=== PATIENT | male | born 1955 | race Caucasian/White ===

== ENCOUNTER 2020-02-14 16:34 | Inpatient (IN) | payer MEDICARE ==
[~2020-02-14] VITALS: Ht 167.6 cm; Wt 83.6 kg
[2020-02-14 17:40] VITALS: BP 140/84
[2020-02-14] MEDS ORDERED: POLYETHYLENE GLYCOL 3350 17 GM PACK PO PRN (18:00)
[2020-02-14] MEDS ORDERED: ACETAMINOPHEN 325 MG TAB PO PRN (18:00)
[2020-02-14] MEDS ORDERED: HYDRALAZINE HCL 20 MG/ML VIAL IV PRN (18:00)
[2020-02-14] MEDS ORDERED: DIATRIZOATE MEGL/DIATRIZOA SOD 30 ML BTL PO ONE (18:40)
[2020-02-14] MEDS: PIPER-TAZ 3.375 GM 50 ML IV SCH (19:50)
[2020-02-14] MEDS: SODIUM CHLORIDE 0.45% 1,000 ML IV SCH (19:50)
[2020-02-14 19:58] LABS: BASOPHILS # (AUTO) 0.1 (0.0-0.1); BASOPHILS % 1.3 % (0.0-1.0); EOSINOPHILS # (AUTO) 0.5 (0.0-0.4); EOSINOPHILS % 5.2 % (0.0-6.0); HEMATOCRIT 37.6 % (38.2-49.6); HEMOGLOBIN 11.9 g/dL (14.0-18.0); LYMPHOCYTES % 30.1 % (18.0-39.1); MEAN CORPUSCULAR HEMOGLOBIN 28.8 pg (28-32); MEAN CORPUSCULAR HGB CONC 31.6 g/dL (31-35); MONOCYTES # (AUTO) 0.9 (0.2-0.8); MONOCYTES % 8.9 % (4.4-11.3); NEUTROPHILS # (AUTO) 5.3 (2.1-6.9); PLATELET COUNT 657 x10e3/uL (140-360); RED BLOOD COUNT 4.13 x10e6/uL (4.3-5.7); RED CELL DISTRIBUTION WIDTH 15.9 % (11.7-14.4)
[2020-02-14 20:00] VITALS: BP_SYST 116; BP_SYST 140; BP_DIAS 81; BP_DIAS 84
[2020-02-14] MEDS: HYDROMORPHONE 1MG/1ML INJ IV PRN (20:04)
[2020-02-14 20:11] LABS: INR 1.04; PROTHROMBIN TIME 14.1 seconds (11.9-14.5)
[2020-02-14 20:12] LABS: PARTIAL THROMBOPLASTIN TIME 29.7 seconds (23.8-35.5)
[2020-02-14 20:21] LABS: ALANINE AMINOTRANSFERASE 8 IU/L (0-55); ALBUMIN 2.9 g/dL (3.5-5.0); ALBUMIN/GLOBULIN RATIO 0.6 (0.8-2.0); ALKALINE PHOSPHATASE 96 IU/L (40-150); BLOOD UREA NITROGEN 12 mg/dL (7-26); BUN/CREATININE RATIO 12 (6-25); CALCIUM 8.5 mg/dL (8.4-10.2); CARBON DIOXIDE 21 mmol/L (22-29); CHLORIDE 108 mmol/L (98-107); CHOLESTEROL 134 MD/DL (0-199); CREATININE, SERUM 1.03 mg/dL (0.72-1.25); EST GLOMERULAR FILTRATION RATE > 60 ML/MIN (60-); GLUCOSE 105 mg/dL (74-118); MAGNESIUM 1.5 MG/DL (1.3-2.1); SODIUM 139 mmol/L (136-145); TRIGLYCERIDES 101 MG/DL (0-149)
[2020-02-14 20:28] LABS: HDL CHOLESTEROL < 5 MG/DL (40-60); LDL CHOLESTEROL 109 MG/DL (60-130); PHOSPHORUS < 0.7 MG/DL (2.3-4.7)
[2020-02-14 20:42] LABS: THYROID STIMULATING HORMONE 1.741 uIU/mL (0.350-4.940)
[2020-02-14] MEDS: VANCOMYCIN 1GM/NS 250 ML 250 ML IV SCH (20:55)
[2020-02-14] MEDS: NICOTINE 14 MG/EA PATCH TOP SCH (21:16)
[2020-02-14] MEDS: TEMAZEPAM 15 MG CAP PO PRN (21:47)
[2020-02-14] MEDS ORDERED: SODIUM CHLORIDE 0.9% 50ML 50 ML ONE (21:48)
[2020-02-14] MEDS ORDERED: IOPAMIDOL 370 MG/ML 200 ML INFUS..BTL INJ ONE (21:48)
[2020-02-15] VITALS (7 sets, daily range): BP systolic 108–138; BP diastolic 71–86
[2020-02-15] MEDS: HYDROMORPHONE 1MG/1ML INJ IV PRN ×4 (00:09→22:34)
[2020-02-15] MEDS: PIPER-TAZ 3.375 GM 50 ML IV SCH ×5 (00:11→23:59)
[2020-02-15 00:42] LABS: CLARITY,URINE CLEAR (CLEAR); COLOR,URINE YELLOW (YELLOW); KETONES,URINE NEGATIVE (NEGATIVE); LEUKOCYTE ESTERASE ,URINE NEGATIVE (NEGATIVE); NITRITE,URINE NEGATIVE (NEGATIVE); PROTEIN,URINE DIPSTICK NEGATIVE (NEGATIVE); URINE UROBILINOGEN 0.2 mg/dL (0.2 - 1)
[2020-02-15 00:52] LABS: BACTERIA,URINE RARE /HPF; EPITHELIAL CELLS,URINE RARE /LPF; RBC,URINE 0-5 /HPF (0-5); WBC,URINE (MAN) 0-5 /HPF (0-5)
[2020-02-15 06:45] LABS: BASOPHILS # (AUTO) 0.1 (0.0-0.1); BASOPHILS % 1.3 % (0.0-1.0); EOSINOPHILS # (AUTO) 0.7 (0.0-0.4); EOSINOPHILS % 10.3 % (0.0-6.0); HEMATOCRIT 38.2 % (38.2-49.6); LYMPHOCYTES # (AUTO) 2.1 (1.0-3.2); LYMPHOCYTES % 29.1 % (18.0-39.1); MEAN CORPUSCULAR HEMOGLOBIN 28.8 pg (28-32); MEAN CORPUSCULAR HGB CONC 31.4 g/dL (31-35); MEAN CORPUSCULAR VOLUME 91.6 fL (81-99); MONOCYTES # (AUTO) 0.8 (0.2-0.8); MONOCYTES % 10.7 % (4.4-11.3); NEUTROPHILS # (AUTO) 3.5 (2.1-6.9); NEUTROPHILS % 48.5 % (38.7-80.0); PLATELET COUNT 620 x10e3/uL (140-360); RED BLOOD COUNT 4.17 x10e6/uL (4.3-5.7); RED CELL DISTRIBUTION WIDTH 16.1 % (11.7-14.4)
[2020-02-15 07:07] LABS: ALANINE AMINOTRANSFERASE 8 IU/L (0-55); ALBUMIN 2.7 g/dL (3.5-5.0); ALBUMIN/GLOBULIN RATIO 0.6 (0.8-2.0); ALKALINE PHOSPHATASE 92 IU/L (40-150); ANION GAP 11.7 mmol/L (8-16); BLOOD UREA NITROGEN 11 mg/dL (7-26); BUN/CREATININE RATIO 10 (6-25); CALCIUM 8.3 mg/dL (8.4-10.2); CARBON DIOXIDE 25 mmol/L (22-29); CHLORIDE 104 mmol/L (98-107); CREATININE, SERUM 1.08 mg/dL (0.72-1.25); EST GLOMERULAR FILTRATION RATE > 60 ML/MIN (60-); GLUCOSE 79 mg/dL (74-118); POTASSIUM 3.7 mmol/L (3.5-5.1); SODIUM 137 mmol/L (136-145)
[2020-02-15] MEDS: VANCOMYCIN 1GM/NS 250 ML 250 ML IV SCH ×2 (08:00→20:12)
[2020-02-15] MEDS: DOCUSATE SODIUM 100 MG CAP PO SCH ×2 (09:45→17:29)
[2020-02-15] MEDS: FAMOTIDINE 20 MG/2 ML VIAL IV SCH ×2 (09:45→17:29)
[2020-02-15] MEDS ORDERED: DIAZEPAM 5 MG TAB PO ONE (12:30)
[2020-02-15] MEDS ORDERED: DIAZEPAM 2 MG TAB PO ONE (12:30)
[2020-02-15] MEDS ORDERED: DEXTROSE 10% 1,000 ML IV PRN (15:30)
[2020-02-15] MEDS ORDERED: GABAPENTIN300 MG PO (15:33)
[2020-02-15] MEDS ORDERED: PROAIR HFA INH8.5 GM HE (15:33)
[2020-02-15] MEDS ORDERED: NYSTATIN-TRIAMC15 GM TOP (15:33)
[2020-02-15] MEDS ORDERED: CLOPIDOGREL75 MG PO (15:33)
[2020-02-15] MEDS ORDERED: LISINOPRIL-HCT1 EACH PO (15:33)
[2020-02-15] MEDS ORDERED: NORCO 5-325 TA1 EACH PO (15:33)
[2020-02-15] MEDS ORDERED: FERROUS FUMARA324 MG PO (15:33)
[2020-02-15] MEDS ORDERED: DIAZEPAM5 MG PO (15:33)
[2020-02-15] MEDS ORDERED: MUCINEX D ER T1 EAC1 PO (15:33)
[2020-02-15] MEDS ORDERED: VENTOLIN HFA18 GM (15:33)
[2020-02-15] MEDS ORDERED: ANORO ELLIPTA1 EACH IH (15:33)
[2020-02-15] MEDS ORDERED: MULTI-VITAMIN1 EACH PO (15:33)
[2020-02-15] MEDS ORDERED: NIFEDIPINE ER30 M1 PO (15:33)
[2020-02-15] MEDS: SODIUM CHLORIDE 0.45% 1,000 ML IV SCH ×2 (15:37→23:59)
[2020-02-15] MEDS ORDERED: CENTRAL TPN FORMULA 1 BAG IV SCH (20:00)
[2020-02-15] MEDS: TEMAZEPAM 15 MG CAP PO PRN (22:42)
[2020-02-16] VITALS (8 sets, daily range): BP systolic 121–150; BP diastolic 78–94
[2020-02-16] MEDS: HYDROMORPHONE 1MG/1ML INJ IV PRN ×6 (02:30→23:16)
[2020-02-16] MEDS: PIPER-TAZ 3.375 GM 50 ML IV SCH ×4 (05:20→23:34)
[2020-02-16 06:03] LABS: BASOPHILS # (AUTO) 0.1 (0.0-0.1); EOSINOPHILS % 12.8 % (0.0-6.0); HEMOGLOBIN 11.4 g/dL (14.0-18.0); LYMPHOCYTES # (AUTO) 1.9 (1.0-3.2); LYMPHOCYTES % 23.7 % (18.0-39.1); MEAN CORPUSCULAR HEMOGLOBIN 29.1 pg (28-32); MEAN CORPUSCULAR HGB CONC 31.7 g/dL (31-35); MEAN CORPUSCULAR VOLUME 91.8 fL (81-99); MONOCYTES # (AUTO) 0.7 (0.2-0.8); MONOCYTES % 9.4 % (4.4-11.3); NEUTROPHILS # (AUTO) 4.1 (2.1-6.9); NEUTROPHILS % 52.8 % (38.7-80.0); PLATELET COUNT 574 x10e3/uL (140-360); RED BLOOD COUNT 3.92 x10e6/uL (4.3-5.7)
[2020-02-16 06:40] LABS: ANION GAP 11.1 mmol/L (8-16); BLOOD UREA NITROGEN 9 mg/dL (7-26); BUN/CREATININE RATIO 10 (6-25); CALCIUM 8.2 mg/dL (8.4-10.2); CARBON DIOXIDE 24 mmol/L (22-29); CHLORIDE 105 mmol/L (98-107); CREATININE, SERUM 0.94 mg/dL (0.72-1.25); EST GLOMERULAR FILTRATION RATE > 60 ML/MIN (60-); GLUCOSE 90 mg/dL (74-118); MAGNESIUM 1.8 MG/DL (1.3-2.1); PHOSPHORUS 4.4 MG/DL (2.3-4.7); POTASSIUM 4.1 mmol/L (3.5-5.1); SODIUM 136 mmol/L (136-145)
[2020-02-16] MEDS: NICOTINE 14 MG/EA PATCH TOP SCH (08:37)
[2020-02-16] MEDS: FAMOTIDINE 20 MG/2 ML VIAL IV SCH ×2 (08:37→17:00)
[2020-02-16] MEDS: VANCOMYCIN 1GM/NS 250 ML 250 ML IV SCH ×2 (08:37→20:03)
[2020-02-16] MEDS: DOCUSATE SODIUM 100 MG CAP PO SCH ×2 (08:37→17:00)
[2020-02-16] MEDS ORDERED: DIAZEPAM 5 MG TAB PO PRN (11:30)
[2020-02-16] MEDS ORDERED: ALBUTEROL SULFATE HFA 8GM INHALATION AEROSOL INH PRN (11:30)
[2020-02-16] MEDS ORDERED: HYDROCODONE/APAP 5MG-325MG TAB PO PRN (11:30)
[2020-02-16] MEDS: NYSTATIN/TRIAMCINOLONE 15 GM CR TOP SCH (17:02)
[2020-02-16] MEDS ORDERED: CENTRAL TPN FORMULA 1 BAG IV SCH (20:00)
[2020-02-16] MEDS: GABAPENTIN 300 MG CAP PO SCH (20:06)
[2020-02-16] MEDS: SODIUM CHLORIDE 0.45% 1,000 ML IV SCH (23:34)
[2020-02-17] VITALS (7 sets, daily range): BP systolic 100–132; BP diastolic 66–81
[2020-02-17] MEDS: HYDROMORPHONE 1MG/1ML INJ IV PRN ×5 (03:21→20:19)
[2020-02-17] MEDS: DIPHENHYDRAMINE HCL INJ 50 MG/ML VIAL IV PRN ×2 (03:28→22:34)
[2020-02-17 05:38] LABS: BASOPHILS # (AUTO) 0.1 (0.0-0.1); BASOPHILS % 1.2 % (0.0-1.0); EOSINOPHILS # (AUTO) 1.1 (0.0-0.4); EOSINOPHILS % 13.8 % (0.0-6.0); HEMATOCRIT 40.5 % (38.2-49.6); HEMOGLOBIN 12.9 g/dL (14.0-18.0); LYMPHOCYTES % 24.1 % (18.0-39.1); MEAN CORPUSCULAR HEMOGLOBIN 28.9 pg (28-32); MEAN CORPUSCULAR HGB CONC 31.9 g/dL (31-35); MEAN CORPUSCULAR VOLUME 90.8 fL (81-99); MONOCYTES # (AUTO) 0.7 (0.2-0.8); MONOCYTES % 8.9 % (4.4-11.3); NEUTROPHILS # (AUTO) 4.2 (2.1-6.9); NEUTROPHILS % 51.6 % (38.7-80.0); PLATELET COUNT 556 x10e3/uL (140-360); RED BLOOD COUNT 4.46 x10e6/uL (4.3-5.7); RED CELL DISTRIBUTION WIDTH 15.9 % (11.7-14.4)
[2020-02-17] MEDS: PIPER-TAZ 3.375 GM 50 ML IV SCH ×3 (05:44→17:50)
[2020-02-17 06:01] LABS: ANION GAP 12.2 mmol/L (8-16); BLOOD UREA NITROGEN 11 mg/dL (7-26); BUN/CREATININE RATIO 11 (6-25); CALCIUM 8.9 mg/dL (8.4-10.2); CARBON DIOXIDE 23 mmol/L (22-29); CHLORIDE 107 mmol/L (98-107); CREATININE, SERUM 0.97 mg/dL (0.72-1.25); EST GLOMERULAR FILTRATION RATE > 60 ML/MIN (60-); GLUCOSE 104 mg/dL (74-118); MAGNESIUM 1.9 MG/DL (1.3-2.1); PHOSPHORUS 4.2 MG/DL (2.3-4.7); POTASSIUM 4.2 mmol/L (3.5-5.1); SODIUM 138 mmol/L (136-145)
[2020-02-17] MEDS: DOCUSATE SODIUM 100 MG CAP PO SCH ×2 (10:04→17:00)
[2020-02-17] MEDS: LISINOPRIL 20 MG TAB PO SCH (10:04)
[2020-02-17] MEDS: GUAIFENESIN 600MG/DEXTROMETHORPHAN 30MG TABSR PO SCH (10:04)
[2020-02-17] MEDS: HYDROCHLOROTHIAZIDE 25 MG TAB PO SCH (10:04)
[2020-02-17] MEDS: FAMOTIDINE 20 MG/2 ML VIAL IV SCH ×2 (10:04→17:50)
[2020-02-17] MEDS: VANCOMYCIN 1GM/NS 250 ML 250 ML IV SCH ×2 (10:04→20:29)
[2020-02-17] MEDS: MULTIVITAMINS/MINERALS TAB PO SCH (10:08)
[2020-02-17] MEDS: NIFEDIPINE CR 30 MG TAB PO SCH (10:08)
[2020-02-17] MEDS: CLOPIDOGREL BISULFATE 75 MG TAB PO SCH (10:08)
[2020-02-17] MEDS: [UNRECOGNIZED DRUG - OTHER] INH SCH (10:09)
[2020-02-17] MEDS: NYSTATIN/TRIAMCINOLONE 15 GM CR TOP SCH ×2 (10:09→17:50)
[2020-02-17] MEDS: NICOTINE 14 MG/EA PATCH TOP SCH (10:09)
[2020-02-17] MEDS ORDERED: CENTRAL TPN FORMULA 1 BAG IV SCH (20:00)
[2020-02-17] MEDS: GABAPENTIN 300 MG CAP PO SCH (20:35)
[2020-02-17] MEDS: TEMAZEPAM 15 MG CAP PO PRN (22:00)
[2020-02-18] VITALS (7 sets, daily range): BP systolic 96–112; BP diastolic 65–73
[2020-02-18] MEDS: SODIUM CHLORIDE 0.45% 1,000 ML IV SCH (02:46)
[2020-02-18] MEDS: HYDROMORPHONE 1MG/1ML INJ IV PRN ×5 (02:52→19:51)
[2020-02-18] MEDS: PIPER-TAZ 3.375 GM 50 ML IV SCH ×5 (05:54→23:26)
[2020-02-18 06:48] LABS: BASOPHILS # (AUTO) 0.1 (0.0-0.1); BASOPHILS % 1.6 % (0.0-1.0); EOSINOPHILS # (AUTO) 1.4 (0.0-0.4); EOSINOPHILS % 18.5 % (0.0-6.0); HEMATOCRIT 40.4 % (38.2-49.6); HEMOGLOBIN 12.9 g/dL (14.0-18.0); LYMPHOCYTES # (AUTO) 1.6 (1.0-3.2); LYMPHOCYTES % 20.7 % (18.0-39.1); MEAN CORPUSCULAR HEMOGLOBIN 29.1 pg (28-32); MEAN CORPUSCULAR HGB CONC 31.9 g/dL (31-35); MONOCYTES # (AUTO) 0.6 (0.2-0.8); MONOCYTES % 8.3 % (4.4-11.3); NEUTROPHILS # (AUTO) 3.8 (2.1-6.9); NEUTROPHILS % 50.5 % (38.7-80.0); PLATELET COUNT 548 x10e3/uL (140-360); RED BLOOD COUNT 4.44 x10e6/uL (4.3-5.7); RED CELL DISTRIBUTION WIDTH 16.1 % (11.7-14.4)
[2020-02-18 07:08] LABS: ANION GAP 11.9 mmol/L (8-16); BLOOD UREA NITROGEN 15 mg/dL (7-26); BUN/CREATININE RATIO 14 (6-25); CALCIUM 8.5 mg/dL (8.4-10.2); CARBON DIOXIDE 20 mmol/L (22-29); CHLORIDE 107 mmol/L (98-107); CREATININE, SERUM 1.05 mg/dL (0.72-1.25); EST GLOMERULAR FILTRATION RATE > 60 ML/MIN (60-); GLUCOSE 118 mg/dL (74-118); MAGNESIUM 1.8 MG/DL (1.3-2.1); PHOSPHORUS 4.6 MG/DL (2.3-4.7); POTASSIUM 3.9 mmol/L (3.5-5.1); SODIUM 135 mmol/L (136-145)
[2020-02-18] MEDS: VANCOMYCIN 1GM/NS 250 ML 250 ML IV SCH (08:30)
[2020-02-18] MEDS: NIFEDIPINE CR 30 MG TAB PO SCH (09:00)
[2020-02-18] MEDS: DOCUSATE SODIUM 100 MG CAP PO SCH ×2 (09:00→17:00)
[2020-02-18] MEDS: [UNRECOGNIZED DRUG - OTHER] INH SCH (09:00)
[2020-02-18] MEDS: FAMOTIDINE 20 MG/2 ML VIAL IV SCH ×2 (09:22→17:36)
[2020-02-18] MEDS: NICOTINE 14 MG/EA PATCH TOP SCH (09:22)
[2020-02-18] MEDS: HYDROCHLOROTHIAZIDE 25 MG TAB PO SCH (09:22)
[2020-02-18] MEDS: MULTIVITAMINS/MINERALS TAB PO SCH (09:22)
[2020-02-18] MEDS: CLOPIDOGREL BISULFATE 75 MG TAB PO SCH (09:22)
[2020-02-18] MEDS: GUAIFENESIN 600MG/DEXTROMETHORPHAN 30MG TABSR PO SCH (09:22)
[2020-02-18] MEDS: LISINOPRIL 20 MG TAB PO SCH (09:22)
[2020-02-18] MEDS: NYSTATIN/TRIAMCINOLONE 15 GM CR TOP SCH ×2 (09:22→17:36)
[2020-02-18] MEDS: SODIUM CHLORIDE 0.9% 1000ML 1,000 ML IV SCH (11:38)
[2020-02-18] MEDS ORDERED: CENTRAL TPN FORMULA 1 BAG IV SCH (20:00)
[2020-02-18] MEDS: GABAPENTIN 300 MG CAP PO SCH (21:15)
[2020-02-18] MEDS: TEMAZEPAM 15 MG CAP PO PRN (21:17)
[2020-02-19] MEDS: HYDROMORPHONE 1MG/1ML INJ IV PRN ×5 (01:49→19:54)
[2020-02-19 02:32] VITALS: BP 109/62
[2020-02-19] MEDS: PIPER-TAZ 3.375 GM 50 ML IV SCH ×3 (05:54→18:00)
[2020-02-19] MEDS: SODIUM CHLORIDE 0.9% 1000ML 1,000 ML IV SCH (05:54)
[2020-02-19 06:52] LABS: BASOPHILS # (AUTO) 0.1 (0.0-0.1); EOSINOPHILS # (AUTO) 1.4 (0.0-0.4); EOSINOPHILS % 20.4 % (0.0-6.0); HEMATOCRIT 40.3 % (38.2-49.6); HEMOGLOBIN 12.6 g/dL (14.0-18.0); LYMPHOCYTES # (AUTO) 1.9 (1.0-3.2); MEAN CORPUSCULAR HEMOGLOBIN 29.7 pg (28-32); MEAN CORPUSCULAR HGB CONC 31.3 g/dL (31-35); MONOCYTES # (AUTO) 0.8 (0.2-0.8); MONOCYTES % 11.3 % (4.4-11.3); NEUTROPHILS # (AUTO) 2.6 (2.1-6.9); PLATELET COUNT 536 x10e3/uL (140-360); RED BLOOD COUNT 4.24 x10e6/uL (4.3-5.7); RED CELL DISTRIBUTION WIDTH 16.3 % (11.7-14.4)
[2020-02-19 07:09] LABS: ANION GAP 11.3 mmol/L (8-16); BLOOD UREA NITROGEN 19 mg/dL (7-26); BUN/CREATININE RATIO 18 (6-25); CALCIUM 8.4 mg/dL (8.4-10.2); CARBON DIOXIDE 19 mmol/L (22-29); CHLORIDE 109 mmol/L (98-107); CREATININE, SERUM 1.05 mg/dL (0.72-1.25); EST GLOMERULAR FILTRATION RATE > 60 ML/MIN (60-); GLUCOSE 106 mg/dL (74-118); MAGNESIUM 1.9 MG/DL (1.3-2.1); PHOSPHORUS 5.2 MG/DL (2.3-4.7); POTASSIUM 4.3 mmol/L (3.5-5.1); SODIUM 135 mmol/L (136-145)
[2020-02-19] MEDS ORDERED: VANCOMYCIN 1GM/NS 250 ML 250 ML IV SCH (08:00)
[2020-02-19 08:10] VITALS: BP 98/71
[2020-02-19 08:27] VITALS: BP 98/71
[2020-02-19] MEDS: VANCOMYCIN 1GM/NS 250 ML 250 ML IV SCH (08:58)
[2020-02-19] MEDS: [UNRECOGNIZED DRUG - OTHER] INH SCH (09:00)
[2020-02-19] MEDS: HYDROCHLOROTHIAZIDE 25 MG TAB PO SCH (09:00)
[2020-02-19] MEDS: LISINOPRIL 20 MG TAB PO SCH (09:00)
[2020-02-19] MEDS: DOCUSATE SODIUM 100 MG CAP PO SCH ×2 (09:00→17:00)
[2020-02-19] MEDS: FAMOTIDINE 20 MG/2 ML VIAL IV SCH ×2 (09:19→17:05)
[2020-02-19] MEDS: NICOTINE 14 MG/EA PATCH TOP SCH (09:19)
[2020-02-19] MEDS: CLOPIDOGREL BISULFATE 75 MG TAB PO SCH (09:19)
[2020-02-19] MEDS: NYSTATIN/TRIAMCINOLONE 15 GM CR TOP SCH ×2 (09:19→17:05)
[2020-02-19] MEDS: MULTIVITAMINS/MINERALS TAB PO SCH (09:19)
[2020-02-19] MEDS: GUAIFENESIN 600MG/DEXTROMETHORPHAN 30MG TABSR PO SCH (09:19)
[2020-02-19 12:29] VITALS: BP 105/64
[2020-02-19] MEDS: DIPHENHYDRAMINE HCL INJ 50 MG/ML VIAL IV PRN (12:58)
[2020-02-19 16:32] VITALS: BP 106/72
[2020-02-19 20:00] VITALS: BP 117/77
[2020-02-19] MEDS ORDERED: CENTRAL TPN FORMULA 1 BAG IV SCH (20:00)
[2020-02-19] MEDS: GABAPENTIN 300 MG CAP PO SCH (20:27)
[2020-02-20] VITALS (7 sets, daily range): BP systolic 108–120; BP diastolic 68–81
[2020-02-20] MEDS: PIPER-TAZ 3.375 GM 50 ML IV SCH ×4 (00:02→18:07)
[2020-02-20] MEDS: HYDROMORPHONE 1MG/1ML INJ IV PRN ×6 (00:02→22:54)
[2020-02-20] MEDS: DIPHENHYDRAMINE HCL INJ 50 MG/ML VIAL IV PRN (00:52)
[2020-02-20] MEDS: SODIUM CHLORIDE 0.9% 1000ML 1,000 ML IV SCH (05:00)
[2020-02-20 06:08] LABS: BASOPHILS # (AUTO) 0.1 (0.0-0.1); BASOPHILS % 1.6 % (0.0-1.0); EOSINOPHILS # (AUTO) 1.2 (0.0-0.4); EOSINOPHILS % 15.8 % (0.0-6.0); HEMATOCRIT 42.1 % (38.2-49.6); HEMOGLOBIN 13.4 g/dL (14.0-18.0); LYMPHOCYTES # (AUTO) 2.3 (1.0-3.2); MEAN CORPUSCULAR HEMOGLOBIN 29.6 pg (28-32); MEAN CORPUSCULAR HGB CONC 31.8 g/dL (31-35); MEAN CORPUSCULAR VOLUME 93.1 fL (81-99); MONOCYTES # (AUTO) 0.8 (0.2-0.8); MONOCYTES % 10.2 % (4.4-11.3); NEUTROPHILS % 41.3 % (38.7-80.0); PLATELET COUNT 543 x10e3/uL (140-360); RED BLOOD COUNT 4.52 x10e6/uL (4.3-5.7); RED CELL DISTRIBUTION WIDTH 15.7 % (11.7-14.4)
[2020-02-20 06:48] LABS: ANION GAP 12.6 mmol/L (8-16); BLOOD UREA NITROGEN 20 mg/dL (7-26); BUN/CREATININE RATIO 20 (6-25); CALCIUM 8.6 mg/dL (8.4-10.2); CARBON DIOXIDE 19 mmol/L (22-29); CHLORIDE 109 mmol/L (98-107); EST GLOMERULAR FILTRATION RATE > 60 ML/MIN (60-); GLUCOSE 92 mg/dL (74-118); MAGNESIUM 1.7 MG/DL (1.3-2.1); PHOSPHORUS 4.7 MG/DL (2.3-4.7); POTASSIUM 4.6 mmol/L (3.5-5.1); SODIUM 136 mmol/L (136-145)
[2020-02-20] MEDS: LISINOPRIL 20 MG TAB PO SCH (09:00)
[2020-02-20] MEDS: [UNRECOGNIZED DRUG - OTHER] INH SCH (09:00)
[2020-02-20] MEDS: GUAIFENESIN 600MG/DEXTROMETHORPHAN 30MG TABSR PO SCH (09:00)
[2020-02-20] MEDS: HYDROCHLOROTHIAZIDE 25 MG TAB PO SCH (09:00)
[2020-02-20] MEDS: DOCUSATE SODIUM 100 MG CAP PO SCH ×2 (09:00→16:56)
[2020-02-20] MEDS: MULTIVITAMINS/MINERALS TAB PO SCH (09:00)
[2020-02-20] MEDS: FAMOTIDINE 20 MG/2 ML VIAL IV SCH ×2 (09:29→16:56)
[2020-02-20] MEDS: VANCOMYCIN 1GM/NS 250 ML 250 ML IV SCH (09:29)
[2020-02-20] MEDS: NYSTATIN/TRIAMCINOLONE 15 GM CR TOP SCH ×2 (10:00→16:56)
[2020-02-20] MEDS: NICOTINE 14 MG/EA PATCH TOP SCH (12:34)
[2020-02-20] MEDS ORDERED: DEXTROSE 50% SYRINGE 50 ML IV PRN (19:15)
[2020-02-20] MEDS: GABAPENTIN 300 MG CAP PO SCH (20:07)
[2020-02-20] MEDS: CENTRAL TPN FORMULA 1 BAG IV SCH (20:15)
[2020-02-21] VITALS (8 sets, daily range): BP systolic 106–119; BP diastolic 66–79
[2020-02-21] MEDS: HYDROMORPHONE 1MG/1ML INJ IV PRN ×2 (03:17→08:03)
[2020-02-21] MEDS: SODIUM CHLORIDE 0.9% 1000ML 1,000 ML IV SCH ×2 (06:06→17:03)
[2020-02-21] MEDS: PIPER-TAZ 3.375 GM 50 ML IV SCH ×5 (06:06→21:55)
[2020-02-21 06:57] LABS: BASOPHILS # (AUTO) 0.2 (0.0-0.1); BASOPHILS % 2.2 % (0.0-1.0); EOSINOPHILS # (AUTO) 0.9 (0.0-0.4); EOSINOPHILS % 13.5 % (0.0-6.0); HEMATOCRIT 40.5 % (38.2-49.6); HEMOGLOBIN 12.6 g/dL (14.0-18.0); LYMPHOCYTES # (AUTO) 2.4 (1.0-3.2); LYMPHOCYTES % 35.3 % (18.0-39.1); MEAN CORPUSCULAR HEMOGLOBIN 29.2 pg (28-32); MEAN CORPUSCULAR HGB CONC 31.1 g/dL (31-35); MEAN CORPUSCULAR VOLUME 93.8 fL (81-99); MONOCYTES # (AUTO) 0.6 (0.2-0.8); MONOCYTES % 9.1 % (4.4-11.3); NEUTROPHILS # (AUTO) 2.7 (2.1-6.9); NEUTROPHILS % 39.8 % (38.7-80.0); PLATELET COUNT 557 x10e3/uL (140-360); RED BLOOD COUNT 4.32 x10e6/uL (4.3-5.7); RED CELL DISTRIBUTION WIDTH 15.8 % (11.7-14.4)
[2020-02-21 07:21] LABS: ANION GAP 10.3 mmol/L (8-16); BLOOD UREA NITROGEN 17 mg/dL (7-26); BUN/CREATININE RATIO 16 (6-25); CALCIUM 9.3 mg/dL (8.4-10.2); CARBON DIOXIDE 19 mmol/L (22-29); CHLORIDE 109 mmol/L (98-107); CREATININE, SERUM 1.05 mg/dL (0.72-1.25); EST GLOMERULAR FILTRATION RATE > 60 ML/MIN (60-); GLUCOSE 83 mg/dL (74-118); POTASSIUM 4.3 mmol/L (3.5-5.1); SODIUM 134 mmol/L (136-145)
[2020-02-21] MEDS: VANCOMYCIN 1GM/NS 250 ML 250 ML IV SCH (08:00)
[2020-02-21] MEDS: FAMOTIDINE 20 MG/2 ML VIAL IV SCH ×2 (08:04→16:51)
[2020-02-21 08:05] LABS: MAGNESIUM 1.7 MG/DL (1.3-2.1)
[2020-02-21] MEDS: HYDROCHLOROTHIAZIDE 25 MG TAB PO SCH (08:06)
[2020-02-21] MEDS: DOCUSATE SODIUM 100 MG CAP PO SCH ×2 (08:06→16:31)
[2020-02-21] MEDS: [UNRECOGNIZED DRUG - OTHER] INH SCH (08:06)
[2020-02-21] MEDS: NICOTINE 14 MG/EA PATCH TOP SCH (08:30)
[2020-02-21 08:33] LABS: PHOSPHORUS 4.3 MG/DL (2.3-4.7)
[2020-02-21] MEDS: NYSTATIN/TRIAMCINOLONE 15 GM CR TOP SCH ×2 (09:00→16:58)
[2020-02-21] MEDS: LISINOPRIL 20 MG TAB PO SCH (09:00)
[2020-02-21] MEDS: MULTIVITAMINS/MINERALS TAB PO SCH (09:00)
[2020-02-21] MEDS: GUAIFENESIN 600MG/DEXTROMETHORPHAN 30MG TABSR PO SCH (09:00)
[2020-02-21] MEDS: MORPHINE SULFATE INJ 4 MG/ML INJ 1ML IV PRN ×2 (13:32→18:15)
[2020-02-21] MEDS: CENTRAL TPN FORMULA 1 BAG IV SCH (20:00)
[2020-02-22] VITALS (8 sets, daily range): BP systolic 102–129; BP diastolic 74–80
[2020-02-22] MEDS: GABAPENTIN 300 MG CAP PO SCH ×2 (00:03→20:57)
[2020-02-22 05:50] LABS: BASOPHILS # (AUTO) 0.2 (0.0-0.1); BASOPHILS % 2.4 % (0.0-1.0); EOSINOPHILS # (AUTO) 0.8 (0.0-0.4); EOSINOPHILS % 11.3 % (0.0-6.0); HEMATOCRIT 41.4 % (38.2-49.6); LYMPHOCYTES # (AUTO) 2.4 (1.0-3.2); LYMPHOCYTES % 34.1 % (18.0-39.1); MEAN CORPUSCULAR HGB CONC 31.4 g/dL (31-35); MEAN CORPUSCULAR VOLUME 92.2 fL (81-99); MONOCYTES # (AUTO) 0.7 (0.2-0.8); MONOCYTES % 9.6 % (4.4-11.3); NEUTROPHILS % 42.3 % (38.7-80.0); PLATELET COUNT 512 x10e3/uL (140-360); RED BLOOD COUNT 4.49 x10e6/uL (4.3-5.7); RED CELL DISTRIBUTION WIDTH 15.8 % (11.7-14.4)
[2020-02-22 06:17] LABS: ANION GAP 13.1 mmol/L (8-16); BLOOD UREA NITROGEN 17 mg/dL (7-26); BUN/CREATININE RATIO 15 (6-25); CALCIUM 9.3 mg/dL (8.4-10.2); CARBON DIOXIDE 18 mmol/L (22-29); CHLORIDE 109 mmol/L (98-107); CREATININE, SERUM 1.12 mg/dL (0.72-1.25); EST GLOMERULAR FILTRATION RATE > 60 ML/MIN (60-); GLUCOSE 92 mg/dL (74-118); POTASSIUM 4.1 mmol/L (3.5-5.1); SODIUM 136 mmol/L (136-145)
[2020-02-22] MEDS: PIPER-TAZ 3.375 GM 50 ML IV SCH ×4 (06:29→23:36)
[2020-02-22] MEDS: MORPHINE SULFATE INJ 4 MG/ML INJ 1ML IV PRN ×4 (06:30→21:44)
[2020-02-22 06:34] LABS: MAGNESIUM 1.6 MG/DL (1.3-2.1); PHOSPHORUS 4.4 MG/DL (2.3-4.7)
[2020-02-22] MEDS: DOCUSATE SODIUM 100 MG CAP PO SCH ×2 (07:58→17:37)
[2020-02-22] MEDS: HYDROCHLOROTHIAZIDE 25 MG TAB PO SCH (07:58)
[2020-02-22] MEDS: MULTIVITAMINS/MINERALS TAB PO SCH (07:58)
[2020-02-22] MEDS: GUAIFENESIN 600MG/DEXTROMETHORPHAN 30MG TABSR PO SCH (07:58)
[2020-02-22] MEDS: VANCOMYCIN 1GM/NS 250 ML 250 ML IV SCH ×2 (08:00→11:01)
[2020-02-22] MEDS: LISINOPRIL 20 MG TAB PO SCH (08:06)
[2020-02-22] MEDS: [UNRECOGNIZED DRUG - OTHER] INH SCH (09:00)
[2020-02-22] MEDS: FAMOTIDINE 20 MG/2 ML VIAL IV SCH ×2 (10:22→17:37)
[2020-02-22] MEDS: NYSTATIN/TRIAMCINOLONE 15 GM CR TOP SCH ×2 (10:23→17:38)
[2020-02-22] MEDS: NICOTINE 14 MG/EA PATCH TOP SCH (10:42)
[2020-02-22] MEDS ORDERED: LIDOCAINE HCL 2% LOCAL INJ 5 ML SDV VIAL INJ ONE (12:11)
[2020-02-22] MEDS ORDERED: NEOSTIGMINE 1 MG/ML 10ML VIAL ONE (12:11)
[2020-02-22] MEDS ORDERED: ROCURONIUM BROMIDE 10 MG/ML 5ML VIAL IV ONE (12:11)
[2020-02-22] MEDS ORDERED: ONDANSETRON HCL INJ 2MG/ML 2ML 2 MG/ML VIAL ONE (12:11)
[2020-02-22] MEDS ORDERED: PROPOFOL IV EMULSION 10 MG/ML 20 ML VIAL ONE (12:11)
[2020-02-22] MEDS ORDERED: DEXAMETHASONE SOD PHOS INJ 4 MG/ML VIAL ONE (12:11)
[2020-02-22] MEDS ORDERED: SEVOFLURANE INHAL SOLN 250 ML PEN BTL ONE (12:11)
[2020-02-22] MEDS ORDERED: GLYCOPYRROLATE INJ 0.2 MG/ML VIAL ONE (12:11)
[2020-02-22] MEDS ORDERED: FENTANYL CITRATE/PF 100MCG/2 ML INJ ONE (12:23)
[2020-02-22] MEDS ORDERED: MIDAZOLAM HCL 2 MG/2 ML VIAL ONE (12:23)
[2020-02-22] MEDS ORDERED: MINERAL OIL STERILE 10ML VIAL ONE ×2 (12:27)
[2020-02-22] MEDS ORDERED: BUPIVACAINE HCL 0.5% INJ 30 ML VIAL INJ ONE (12:27)
[2020-02-22] MEDS: HYDROMORPHONE 1MG/1ML INJ ONE ×4 (13:37→14:36)
[2020-02-22] MEDS: SODIUM CHLORIDE 0.9% 1000ML 1,000 ML IV SCH (14:30)
[2020-02-22] MEDS: CENTRAL TPN FORMULA 1 BAG IV SCH (20:00)
[2020-02-22] MEDS ORDERED: MAGNESIUM SULFATE 2GM/50ML 50 ML IV ONE (21:00)
[2020-02-23] VITALS (7 sets, daily range): BP systolic 104–121; BP diastolic 69–83
[2020-02-23] MEDS: MORPHINE SULFATE INJ 4 MG/ML INJ 1ML IV PRN ×2 (01:41→07:39)
[2020-02-23] MEDS: PIPER-TAZ 3.375 GM 50 ML IV SCH ×3 (05:02→17:07)
[2020-02-23] MEDS: NICOTINE 14 MG/EA PATCH TOP SCH (07:40)
[2020-02-23] MEDS: FAMOTIDINE 20 MG/2 ML VIAL IV SCH ×2 (07:40→17:07)
[2020-02-23] MEDS: VANCOMYCIN 1GM/NS 250 ML 250 ML IV SCH (07:41)
[2020-02-23] MEDS: LISINOPRIL 20 MG TAB PO SCH (07:52)
[2020-02-23] MEDS: DOCUSATE SODIUM 100 MG CAP PO SCH ×2 (07:52→17:07)
[2020-02-23] MEDS: HYDROCHLOROTHIAZIDE 25 MG TAB PO SCH (07:52)
[2020-02-23] MEDS: GUAIFENESIN 600MG/DEXTROMETHORPHAN 30MG TABSR PO SCH (07:53)
[2020-02-23] MEDS: MULTIVITAMINS/MINERALS TAB PO SCH (07:53)
[2020-02-23] MEDS: NYSTATIN/TRIAMCINOLONE 15 GM CR TOP SCH ×2 (09:00→17:00)
[2020-02-23] MEDS: [UNRECOGNIZED DRUG - OTHER] INH SCH (09:00)
[2020-02-23] MEDS ORDERED: MORPHINE SULFATE INJ 4 MG/ML INJ 1ML IV PRN (09:15)
[2020-02-23] MEDS: GABAPENTIN 300 MG CAP PO SCH ×2 (09:15→17:07)
[2020-02-23] MEDS ORDERED: GABAPENTIN 100 MG CAP PO SCH (09:15)
[2020-02-23 09:21] LABS: BASOPHILS # (AUTO) 0.1 (0.0-0.1); EOSINOPHILS % 0.5 % (0.0-6.0); HEMATOCRIT 38.9 % (38.2-49.6); HEMOGLOBIN 12.7 g/dL (14.0-18.0); LYMPHOCYTES # (AUTO) 2.5 (1.0-3.2); LYMPHOCYTES % 30.3 % (18.0-39.1); MEAN CORPUSCULAR HEMOGLOBIN 29.3 pg (28-32); MEAN CORPUSCULAR HGB CONC 32.6 g/dL (31-35); MEAN CORPUSCULAR VOLUME 89.6 fL (81-99); MONOCYTES # (AUTO) 0.6 (0.2-0.8); MONOCYTES % 7.5 % (4.4-11.3); NEUTROPHILS % 60.5 % (38.7-80.0); PLATELET COUNT 489 x10e3/uL (140-360); RED BLOOD COUNT 4.34 x10e6/uL (4.3-5.7)
[2020-02-23 09:53] LABS: ANION GAP 11.8 mmol/L (8-16); BLOOD UREA NITROGEN 18 mg/dL (7-26); BUN/CREATININE RATIO 18 (6-25); CALCIUM 8.9 mg/dL (8.4-10.2); CARBON DIOXIDE 18 mmol/L (22-29); CHLORIDE 109 mmol/L (98-107); CREATININE, SERUM 0.99 mg/dL (0.72-1.25); EST GLOMERULAR FILTRATION RATE > 60 ML/MIN (60-); GLUCOSE 142 mg/dL (74-118); MAGNESIUM 1.7 MG/DL (1.3-2.1); PHOSPHORUS 3.7 MG/DL (2.3-4.7); POTASSIUM 3.8 mmol/L (3.5-5.1); SODIUM 135 mmol/L (136-145)
[2020-02-23] MEDS: MORPHINE SULFATE 2 MG/ML SYR 1ML IV PRN ×5 (10:11→23:22)
[2020-02-23] MEDS: SODIUM CHLORIDE 0.9% 1000ML 1,000 ML IV SCH (10:30)
[2020-02-23] MEDS ORDERED: CENTRAL TPN FORMULA 1 BAG IV SCH (20:00)
[2020-02-23] MEDS: ONDANSETRON HCL INJ 2MG/ML 2ML 2 MG/ML VIAL IV PRN (20:16)
[2020-02-24] VITALS (7 sets, daily range): BP systolic 94–133; BP diastolic 53–86
[2020-02-24] MEDS: PIPER-TAZ 3.375 GM 50 ML IV SCH ×3 (00:38→12:54)
[2020-02-24] MEDS: SODIUM CHLORIDE 0.9% 1000ML 1,000 ML IV SCH ×2 (05:08→20:21)
[2020-02-24 08:22] LABS: BASOPHILS # (AUTO) 0.2 (0.0-0.1); BASOPHILS % 1.9 % (0.0-1.0); EOSINOPHILS # (AUTO) 0.4 (0.0-0.4); EOSINOPHILS % 4.7 % (0.0-6.0); HEMATOCRIT 38.5 % (38.2-49.6); HEMOGLOBIN 12.2 g/dL (14.0-18.0); LYMPHOCYTES # (AUTO) 2.9 (1.0-3.2); LYMPHOCYTES % 36.9 % (18.0-39.1); MEAN CORPUSCULAR HEMOGLOBIN 28.8 pg (28-32); MEAN CORPUSCULAR HGB CONC 31.7 g/dL (31-35); MEAN CORPUSCULAR VOLUME 90.8 fL (81-99); MONOCYTES # (AUTO) 0.7 (0.2-0.8); MONOCYTES % 9.1 % (4.4-11.3); NEUTROPHILS # (AUTO) 3.7 (2.1-6.9); NEUTROPHILS % 47.1 % (38.7-80.0); PLATELET COUNT 476 x10e3/uL (140-360); RED BLOOD COUNT 4.24 x10e6/uL (4.3-5.7); RED CELL DISTRIBUTION WIDTH 15.7 % (11.7-14.4)
[2020-02-24 08:44] LABS: ALANINE AMINOTRANSFERASE 7 IU/L (0-55); ALBUMIN 3.1 g/dL (3.5-5.0); ALBUMIN/GLOBULIN RATIO -1.3 (0.8-2.0); ALKALINE PHOSPHATASE 72 IU/L (40-150); CALCIUM 8.5 mg/dL (8.4-10.2); CARBON DIOXIDE 20 mmol/L (22-29); CHLORIDE 111 mmol/L (98-107); EST GLOMERULAR FILTRATION RATE > 60 ML/MIN (60-); GLUCOSE 93 mg/dL (74-118); SODIUM 140 mmol/L (136-145)
[2020-02-24] MEDS: [UNRECOGNIZED DRUG - OTHER] INH SCH (09:00)
[2020-02-24 09:01] LABS: BLOOD UREA NITROGEN < 2 mg/dL (7-26); BUN/CREATININE RATIO 2 (6-25)
[2020-02-24] MEDS: MORPHINE SULFATE 2 MG/ML SYR 1ML IV PRN ×4 (10:55→21:24)
[2020-02-24] MEDS: MULTIVITAMINS/MINERALS TAB PO SCH (10:55)
[2020-02-24] MEDS: NYSTATIN/TRIAMCINOLONE 15 GM CR TOP SCH ×2 (10:55→16:41)
[2020-02-24] MEDS: NICOTINE 14 MG/EA PATCH TOP SCH (10:55)
[2020-02-24] MEDS: FAMOTIDINE 20 MG/2 ML VIAL IV SCH ×2 (10:55→16:41)
[2020-02-24] MEDS: ONDANSETRON HCL INJ 2MG/ML 2ML 2 MG/ML VIAL IV PRN ×2 (10:55→14:47)
[2020-02-24] MEDS: VANCOMYCIN 1GM/NS 250 ML 250 ML IV SCH (10:55)
[2020-02-24] MEDS: CENTRAL TPN FORMULA 1 BAG IV SCH (20:00)
[2020-02-25 00:23] VITALS: BP 121/86
[2020-02-25] MEDS: MORPHINE SULFATE 2 MG/ML SYR 1ML IV PRN ×7 (00:25→23:34)
[2020-02-25 08:00] VITALS: BP 116/88
[2020-02-25] MEDS: VANCOMYCIN 1GM/NS 250 ML 250 ML IV SCH (08:45)
[2020-02-25] MEDS: NICOTINE 14 MG/EA PATCH TOP SCH (08:46)
[2020-02-25] MEDS: NYSTATIN/TRIAMCINOLONE 15 GM CR TOP SCH ×2 (08:46→18:09)
[2020-02-25] MEDS: MULTIVITAMINS/MINERALS TAB PO SCH (08:46)
[2020-02-25] MEDS: FAMOTIDINE 20 MG/2 ML VIAL IV SCH ×2 (08:46→17:50)
[2020-02-25] MEDS: [UNRECOGNIZED DRUG - OTHER] INH SCH (08:46)
[2020-02-25 09:06] LABS: BASOPHILS # (AUTO) 0.2 (0.0-0.1); BASOPHILS % 1.7 % (0.0-1.0); EOSINOPHILS # (AUTO) 0.5 (0.0-0.4); EOSINOPHILS % 5.7 % (0.0-6.0); HEMATOCRIT 37.3 % (38.2-49.6); HEMOGLOBIN 11.8 g/dL (14.0-18.0); LYMPHOCYTES # (AUTO) 1.9 (1.0-3.2); LYMPHOCYTES % 22.5 % (18.0-39.1); MEAN CORPUSCULAR HEMOGLOBIN 30.3 pg (28-32); MEAN CORPUSCULAR HGB CONC 31.6 g/dL (31-35); MEAN CORPUSCULAR VOLUME 95.6 fL (81-99); MONOCYTES # (AUTO) 0.8 (0.2-0.8); MONOCYTES % 8.9 % (4.4-11.3); NEUTROPHILS # (AUTO) 5.2 (2.1-6.9); PLATELET COUNT 449 x10e3/uL (140-360)
[2020-02-25 09:08] VITALS: BP 116/88
[2020-02-25 10:27] LABS: BLOOD UREA NITROGEN 15 mg/dL (7-26); BUN/CREATININE RATIO 16 (6-25); CALCIUM 8.6 mg/dL (8.4-10.2); CARBON DIOXIDE 19 mmol/L (22-29); CHLORIDE 112 mmol/L (98-107); CREATININE, SERUM 0.91 mg/dL (0.72-1.25); EST GLOMERULAR FILTRATION RATE > 60 ML/MIN (60-); GLUCOSE 90 mg/dL (74-118); SODIUM 138 mmol/L (136-145)
[2020-02-25 16:00] VITALS: BP 120/77
[2020-02-25 19:48] VITALS: BP 132/85
[2020-02-25] MEDS: CENTRAL TPN FORMULA 1 BAG IV SCH (20:00)
[2020-02-25 20:36] VITALS: BP 132/85
[2020-02-25] MEDS: SODIUM CHLORIDE 0.9% 1000ML 1,000 ML IV SCH (20:48)
[2020-02-26] VITALS (8 sets, daily range): BP systolic 113–132; BP diastolic 67–85
[2020-02-26] MEDS: MORPHINE SULFATE 2 MG/ML SYR 1ML IV PRN ×7 (03:36→21:45)
[2020-02-26 06:46] LABS: BASOPHILS # (AUTO) 0.2 (0.0-0.1); BASOPHILS % 1.6 % (0.0-1.0); EOSINOPHILS # (AUTO) 0.8 (0.0-0.4); EOSINOPHILS % 8.1 % (0.0-6.0); HEMOGLOBIN 12.4 g/dL (14.0-18.0); LYMPHOCYTES # (AUTO) 2.4 (1.0-3.2); LYMPHOCYTES % 24.2 % (18.0-39.1); MEAN CORPUSCULAR HEMOGLOBIN 28.9 pg (28-32); MEAN CORPUSCULAR HGB CONC 31.8 g/dL (31-35); MEAN CORPUSCULAR VOLUME 90.9 fL (81-99); MONOCYTES % 9.5 % (4.4-11.3); NEUTROPHILS # (AUTO) 5.6 (2.1-6.9); NEUTROPHILS % 56.3 % (38.7-80.0); PLATELET COUNT 475 x10e3/uL (140-360); RED BLOOD COUNT 4.29 x10e6/uL (4.3-5.7); RED CELL DISTRIBUTION WIDTH 15.4 % (11.7-14.4)
[2020-02-26 07:26] LABS: ALANINE AMINOTRANSFERASE 9 IU/L (0-55); ALBUMIN 2.9 g/dL (3.5-5.0); ALBUMIN/GLOBULIN RATIO 0.6 (0.8-2.0); ALKALINE PHOSPHATASE 84 IU/L (40-150); ANION GAP 7.3 mmol/L (8-16); BLOOD UREA NITROGEN 15 mg/dL (7-26); BUN/CREATININE RATIO 18 (6-25); CALCIUM 8.9 mg/dL (8.4-10.2); CARBON DIOXIDE 20 mmol/L (22-29); CHLORIDE 112 mmol/L (98-107); CREATININE, SERUM 0.83 mg/dL (0.72-1.25); EST GLOMERULAR FILTRATION RATE > 60 ML/MIN (60-); GLUCOSE 127 mg/dL (74-118); POTASSIUM 3.3 mmol/L (3.5-5.1); SODIUM 136 mmol/L (136-145)
[2020-02-26] MEDS: FAMOTIDINE 20 MG/2 ML VIAL IV SCH ×2 (08:25→15:55)
[2020-02-26] MEDS: NICOTINE 14 MG/EA PATCH TOP SCH (08:26)
[2020-02-26] MEDS: [UNRECOGNIZED DRUG - OTHER] INH SCH (09:00)
[2020-02-26] MEDS: NYSTATIN/TRIAMCINOLONE 15 GM CR TOP SCH ×2 (09:00→15:56)
[2020-02-26] MEDS: MULTIVITAMINS/MINERALS TAB PO SCH (09:54)
[2020-02-26] MEDS: SODIUM CHLORIDE 0.9% 1000ML 1,000 ML IV SCH (10:56)
[2020-02-26] MEDS ORDERED: POTASSIUM CHLORIDE 10MEQ/100ML 200 ML IV ONE (11:00)
[2020-02-26] MEDS: CENTRAL TPN FORMULA 1 BAG IV SCH (20:00)
[2020-02-27] VITALS (8 sets, daily range): BP systolic 110–125; BP diastolic 60–86
[2020-02-27] MEDS: MORPHINE SULFATE 2 MG/ML SYR 1ML IV PRN ×7 (00:45→22:40)
[2020-02-27 06:24] LABS: BASOPHILS # (AUTO) 0.2 (0.0-0.1); BASOPHILS % 2.1 % (0.0-1.0); EOSINOPHILS # (AUTO) 1.2 (0.0-0.4); EOSINOPHILS % 12.8 % (0.0-6.0); HEMATOCRIT 38.8 % (38.2-49.6); HEMOGLOBIN 12.7 g/dL (14.0-18.0); LYMPHOCYTES # (AUTO) 2.4 (1.0-3.2); LYMPHOCYTES % 24.8 % (18.0-39.1); MEAN CORPUSCULAR HEMOGLOBIN 29.5 pg (28-32); MEAN CORPUSCULAR HGB CONC 32.7 g/dL (31-35); MEAN CORPUSCULAR VOLUME 90.2 fL (81-99); MONOCYTES # (AUTO) 0.9 (0.2-0.8); MONOCYTES % 9.4 % (4.4-11.3); NEUTROPHILS # (AUTO) 4.9 (2.1-6.9); NEUTROPHILS % 50.6 % (38.7-80.0); PLATELET COUNT 464 x10e3/uL (140-360); RED CELL DISTRIBUTION WIDTH 15.6 % (11.7-14.4)
[2020-02-27 06:45] LABS: ANION GAP 9.6 mmol/L (8-16); BLOOD UREA NITROGEN 16 mg/dL (7-26); BUN/CREATININE RATIO 18 (6-25); CALCIUM 8.8 mg/dL (8.4-10.2); CARBON DIOXIDE 19 mmol/L (22-29); CHLORIDE 111 mmol/L (98-107); CREATININE, SERUM 0.88 mg/dL (0.72-1.25); EST GLOMERULAR FILTRATION RATE > 60 ML/MIN (60-); GLUCOSE 112 mg/dL (74-118); POTASSIUM 3.6 mmol/L (3.5-5.1); SODIUM 136 mmol/L (136-145)
[2020-02-27] MEDS: NYSTATIN/TRIAMCINOLONE 15 GM CR TOP SCH ×2 (07:19→16:14)
[2020-02-27] MEDS: [UNRECOGNIZED DRUG - OTHER] INH SCH (09:00)
[2020-02-27] MEDS ORDERED: ASPIRIN 325 MG TAB PO SCH (09:00)
[2020-02-27] MEDS: FAMOTIDINE 20 MG/2 ML VIAL IV SCH ×2 (09:46→16:13)
[2020-02-27] MEDS: MULTIVITAMINS/MINERALS TAB PO SCH (09:46)
[2020-02-27] MEDS: NICOTINE 14 MG/EA PATCH TOP SCH (09:46)
[2020-02-27] MEDS: CLOPIDOGREL BISULFATE 75 MG TAB PO SCH (09:46)
[2020-02-27] MEDS: ASPIRIN 81 MG CHEW TAB PO SCH (09:46)
[2020-02-27] MEDS: SODIUM CHLORIDE 0.9% 1000ML 1,000 ML IV SCH (10:42)
[2020-02-27] MEDS: ATORVASTATIN 40 MG TAB PO SCH (20:39)
[2020-02-27] MEDS: CENTRAL TPN FORMULA 1 BAG IV SCH (20:41)
[2020-02-27] MEDS ORDERED: ATORVASTATIN 20 MG TAB PO SCH (21:00)
[2020-02-28] VITALS (8 sets, daily range): BP systolic 107–136; BP diastolic 75–86
[2020-02-28] MEDS: MORPHINE SULFATE 2 MG/ML SYR 1ML IV PRN ×6 (03:40→22:20)
[2020-02-28] MEDS: SODIUM CHLORIDE 0.9% 1000ML 1,000 ML IV SCH ×3 (04:41→22:20)
[2020-02-28] MEDS: NYSTATIN/TRIAMCINOLONE 15 GM CR TOP SCH ×2 (08:23→17:00)
[2020-02-28] MEDS: NICOTINE 14 MG/EA PATCH TOP SCH (08:23)
[2020-02-28] MEDS: MULTIVITAMINS/MINERALS TAB PO SCH (08:23)
[2020-02-28] MEDS: FAMOTIDINE 20 MG/2 ML VIAL IV SCH ×2 (08:23→17:08)
[2020-02-28] MEDS: ASPIRIN 81 MG CHEW TAB PO SCH (08:23)
[2020-02-28] MEDS: CLOPIDOGREL BISULFATE 75 MG TAB PO SCH (08:23)
[2020-02-28 08:24] LABS: BASOPHILS # (AUTO) 0.1 (0.0-0.1); BASOPHILS % 1.6 % (0.0-1.0); EOSINOPHILS % 11.8 % (0.0-6.0); HEMOGLOBIN 11.2 g/dL (14.0-18.0); LYMPHOCYTES % 23.9 % (18.0-39.1); MEAN CORPUSCULAR HEMOGLOBIN 29.6 pg (28-32); MEAN CORPUSCULAR VOLUME 92.3 fL (81-99); MONOCYTES # (AUTO) 0.6 (0.2-0.8); MONOCYTES % 7.8 % (4.4-11.3); NEUTROPHILS # (AUTO) 4.5 (2.1-6.9); NEUTROPHILS % 54.4 % (38.7-80.0); PLATELET COUNT 427 x10e3/uL (140-360); RED BLOOD COUNT 3.79 x10e6/uL (4.3-5.7); RED CELL DISTRIBUTION WIDTH 15.4 % (11.7-14.4)
[2020-02-28] MEDS: [UNRECOGNIZED DRUG - OTHER] INH SCH (08:24)
[2020-02-28 08:48] LABS: ANION GAP 7.7 mmol/L (8-16); BLOOD UREA NITROGEN 16 mg/dL (7-26); BUN/CREATININE RATIO 19 (6-25); CALCIUM 9.1 mg/dL (8.4-10.2); CARBON DIOXIDE 20 mmol/L (22-29); CHLORIDE 111 mmol/L (98-107); CREATININE, SERUM 0.84 mg/dL (0.72-1.25); EST GLOMERULAR FILTRATION RATE > 60 ML/MIN (60-); GLUCOSE 116 mg/dL (74-118); POTASSIUM 3.7 mmol/L (3.5-5.1); SODIUM 135 mmol/L (136-145)
[2020-02-28] MEDS ORDERED: CENTRAL TPN FORMULA 1 BAG IV SCH (20:00)
[2020-02-28] MEDS: ATORVASTATIN 40 MG TAB PO SCH (20:23)
[2020-02-29] MEDS: MORPHINE SULFATE 2 MG/ML SYR 1ML IV PRN ×7 (01:24→21:07)
[2020-02-29] MEDS: SODIUM CHLORIDE 0.9% 1000ML 1,000 ML IV SCH (06:05)
[2020-02-29 08:00] VITALS: BP 127/89
[2020-02-29 08:22] VITALS: BP 127/98
[2020-02-29] MEDS: CLOPIDOGREL BISULFATE 75 MG TAB PO SCH (08:45)
[2020-02-29] MEDS: FAMOTIDINE 20 MG/2 ML VIAL IV SCH ×2 (08:45→16:19)
[2020-02-29] MEDS: ASPIRIN 81 MG CHEW TAB PO SCH (08:45)
[2020-02-29] MEDS: MULTIVITAMINS/MINERALS TAB PO SCH (08:45)
[2020-02-29] MEDS: NICOTINE 14 MG/EA PATCH TOP SCH (08:46)
[2020-02-29] MEDS: [UNRECOGNIZED DRUG - OTHER] INH SCH (08:50)
[2020-02-29 09:09] LABS: BASOPHILS # (AUTO) 0.1 (0.0-0.1); BASOPHILS % 1.4 % (0.0-1.0); EOSINOPHILS # (AUTO) 1.1 (0.0-0.4); EOSINOPHILS % 11.1 % (0.0-6.0); HEMATOCRIT 40.1 % (38.2-49.6); HEMOGLOBIN 12.9 g/dL (14.0-18.0); LYMPHOCYTES # (AUTO) 2.5 (1.0-3.2); MEAN CORPUSCULAR HEMOGLOBIN 29.7 pg (28-32); MEAN CORPUSCULAR HGB CONC 32.2 g/dL (31-35); MEAN CORPUSCULAR VOLUME 92.2 fL (81-99); MONOCYTES # (AUTO) 0.7 (0.2-0.8); MONOCYTES % 7.5 % (4.4-11.3); NEUTROPHILS # (AUTO) 5.1 (2.1-6.9); NEUTROPHILS % 53.6 % (38.7-80.0); PLATELET COUNT 476 x10e3/uL (140-360); RED BLOOD COUNT 4.35 x10e6/uL (4.3-5.7); RED CELL DISTRIBUTION WIDTH 15.4 % (11.7-14.4)
[2020-02-29 11:05] LABS: ANION GAP 8.8 mmol/L (8-16); BLOOD UREA NITROGEN 14 mg/dL (7-26); BUN/CREATININE RATIO 17 (6-25); CALCIUM 8.8 mg/dL (8.4-10.2); CARBON DIOXIDE 19 mmol/L (22-29); CHLORIDE 114 mmol/L (98-107); CREATININE, SERUM 0.83 mg/dL (0.72-1.25); EST GLOMERULAR FILTRATION RATE > 60 ML/MIN (60-); GLUCOSE 70 mg/dL (74-118); MAGNESIUM 1.7 MG/DL (1.3-2.1); PHOSPHORUS 3.3 MG/DL (2.3-4.7); POTASSIUM 3.8 mmol/L (3.5-5.1); SODIUM 138 mmol/L (136-145)
[2020-02-29 12:00] VITALS: BP 115/87
[2020-02-29] MEDS ORDERED: MAGNESIUM SULF 1GRAM/DEXTROSE 100 ML IV ONE (12:00)
[2020-02-29 16:00] VITALS: BP 123/84
[2020-02-29 20:00] VITALS: BP 120/84
[2020-02-29] MEDS ORDERED: CENTRAL TPN FORMULA 1 BAG IV SCH (20:00)
[2020-02-29] MEDS: ATORVASTATIN 40 MG TAB PO SCH (21:00)
[2020-02-29 22:38] VITALS: BP 120/84
[2020-03-01] VITALS (8 sets, daily range): BP systolic 118–131; BP diastolic 80–90
[2020-03-01] MEDS: SODIUM CHLORIDE 0.9% 1000ML 1,000 ML IV SCH ×2 (02:30→22:30)
[2020-03-01] MEDS: MORPHINE SULFATE 2 MG/ML SYR 1ML IV PRN ×5 (05:45→21:32)
[2020-03-01] MEDS: ASPIRIN 81 MG CHEW TAB PO SCH (08:52)
[2020-03-01] MEDS: CLOPIDOGREL BISULFATE 75 MG TAB PO SCH (08:52)
[2020-03-01] MEDS: NICOTINE 14 MG/EA PATCH TOP SCH (08:52)
[2020-03-01] MEDS: FAMOTIDINE 20 MG/2 ML VIAL IV SCH ×2 (08:52→17:05)
[2020-03-01] MEDS: MULTIVITAMINS/MINERALS TAB PO SCH (08:52)
[2020-03-01] MEDS: [UNRECOGNIZED DRUG - OTHER] INH SCH (08:56)
[2020-03-01] MEDS ORDERED: MAGNESIUM SULF 1GRAM/DEXTROSE 100 ML IV ONE (11:15)
[2020-03-01 11:21] LABS: BASOPHILS # (AUTO) 0.2 (0.0-0.1); BASOPHILS % 2.4 % (0.0-1.0); EOSINOPHILS # (AUTO) 0.9 (0.0-0.4); HEMATOCRIT 42.3 % (38.2-49.6); HEMOGLOBIN 12.8 g/dL (14.0-18.0); LYMPHOCYTES # (AUTO) 2.3 (1.0-3.2); LYMPHOCYTES % 24.6 % (18.0-39.1); MEAN CORPUSCULAR HGB CONC 30.3 g/dL (31-35); MEAN CORPUSCULAR VOLUME 95.7 fL (81-99); MONOCYTES # (AUTO) 0.6 (0.2-0.8); MONOCYTES % 6.8 % (4.4-11.3); NEUTROPHILS # (AUTO) 5.2 (2.1-6.9); NEUTROPHILS % 55.8 % (38.7-80.0); PLATELET COUNT 474 x10e3/uL (140-360); RED BLOOD COUNT 4.42 x10e6/uL (4.3-5.7)
[2020-03-01 11:47] LABS: ANION GAP 9.3 mmol/L (8-16); BLOOD UREA NITROGEN 16 mg/dL (7-26); BUN/CREATININE RATIO 17 (6-25); CALCIUM 8.8 mg/dL (8.4-10.2); CARBON DIOXIDE 18 mmol/L (22-29); CHLORIDE 113 mmol/L (98-107); CREATININE, SERUM 0.92 mg/dL (0.72-1.25); EST GLOMERULAR FILTRATION RATE > 60 ML/MIN (60-); GLUCOSE 85 mg/dL (74-118); MAGNESIUM 1.7 MG/DL (1.3-2.1); PHOSPHORUS 3.2 MG/DL (2.3-4.7); POTASSIUM 4.3 mmol/L (3.5-5.1); SODIUM 136 mmol/L (136-145)
[2020-03-01] MEDS ORDERED: CENTRAL TPN FORMULA 1 BAG IV SCH (20:00)
[2020-03-01] MEDS: ATORVASTATIN 40 MG TAB PO SCH (21:00)
[2020-03-01] MEDS: DIPHENHYDRAMINE HCL INJ 50 MG/ML VIAL IV PRN (21:31)
[2020-03-02] VITALS: BP 117/83
[2020-03-02] MEDS ORDERED: HYDROCODONE/APAP 10MG-325MG TAB PO PRN (00:15)
[2020-03-02] MEDS ORDERED: TRAMADOL HCL 50 MG TAB PO PRN (00:15)
[2020-03-02] MEDS ORDERED: ACETAMINOPHEN/CODEINE 300MG - 30MG TAB PO PRN (00:15)
[2020-03-02 04:00] VITALS: BP 124/82
[2020-03-02] MEDS ORDERED: PLAVIX75 MG PO (07:50)
[2020-03-02] MEDS ORDERED: ULTRAM 50MG50 MG PO (07:50)
[2020-03-02] MEDS ORDERED: NICODERM CQ1 EAC1 TOP (07:50)
[2020-03-02] MEDS ORDERED: TYLENOL # 31 EA PO (07:50)
[2020-03-02] MEDS ORDERED: ASPIRIN CHEW81 MG PO (07:50)
[2020-03-02] MEDS ORDERED: MIRALAX17 GM PO (07:50)
[2020-03-02] MEDS ORDERED: Atorvastatin PO (07:50)
[2020-03-02] MEDS: NICOTINE 14 MG/EA PATCH TOP SCH (08:18)
[2020-03-02] MEDS: ASPIRIN 81 MG CHEW TAB PO SCH (08:18)
[2020-03-02] MEDS: CLOPIDOGREL BISULFATE 75 MG TAB PO SCH (08:18)
[2020-03-02] MEDS: MULTIVITAMINS/MINERALS TAB PO SCH (08:18)
[2020-03-02] MEDS: FAMOTIDINE 20 MG/2 ML VIAL IV SCH (08:18)
[2020-03-02] MEDS: [UNRECOGNIZED DRUG - OTHER] INH SCH (08:26)
[2020-03-02 08:50] VITALS: BP 133/84
[2020-03-02 09:55] LABS: BASOPHILS # (AUTO) 0.2 (0.0-0.1); BASOPHILS % 2.4 % (0.0-1.0); EOSINOPHILS # (AUTO) 0.6 (0.0-0.4); EOSINOPHILS % 8.6 % (0.0-6.0); HEMOGLOBIN 12.6 g/dL (14.0-18.0); LYMPHOCYTES # (AUTO) 1.8 (1.0-3.2); LYMPHOCYTES % 23.5 % (18.0-39.1); MEAN CORPUSCULAR HEMOGLOBIN 29.5 pg (28-32); MEAN CORPUSCULAR HGB CONC 32.3 g/dL (31-35); MEAN CORPUSCULAR VOLUME 91.3 fL (81-99); MONOCYTES # (AUTO) 0.7 (0.2-0.8); MONOCYTES % 9.8 % (4.4-11.3); NEUTROPHILS # (AUTO) 4.1 (2.1-6.9); NEUTROPHILS % 55.4 % (38.7-80.0); PLATELET COUNT 471 x10e3/uL (140-360); RED BLOOD COUNT 4.27 x10e6/uL (4.3-5.7); RED CELL DISTRIBUTION WIDTH 15.7 % (11.7-14.4)
[2020-03-02 10:20] LABS: BLOOD UREA NITROGEN 15 mg/dL (7-26); BUN/CREATININE RATIO 16 (6-25); CALCIUM 8.9 mg/dL (8.4-10.2); CARBON DIOXIDE 19 mmol/L (22-29); CHLORIDE 114 mmol/L (98-107); CREATININE, SERUM 0.91 mg/dL (0.72-1.25); EST GLOMERULAR FILTRATION RATE > 60 ML/MIN (60-); GLUCOSE 99 mg/dL (74-118); MAGNESIUM 1.6 MG/DL (1.3-2.1); PHOSPHORUS 3.4 MG/DL (2.3-4.7); SODIUM 138 mmol/L (136-145)
[2020-03-02] MEDS ORDERED: MAGNESIUM SULFATE 2GM/50ML 50 ML IV ONE ×2 (11:00→13:00)
[2020-03-02] MEDS ORDERED: NORCO 10-325 T1 EACH PO (11:04)
[2020-03-02] MEDS ORDERED: DOXYCYCLINE HY100 MG PO (12:15)
[2020-03-02] MEDS ORDERED: BACTRIM DS TAB1 EACH PO (12:15)
[2020-03-02] MEDS ORDERED: ONDANSETRON HCL 4 MG ORAL DISINTEGRATING TAB PO PRN (12:30)
[2020-03-02 12:41] VITALS: BP 125/85
== END 2020-03-02 13:34 | disposition home or self-care (01) | DRG 902 ==
LOC: MED/SURG3 16:55
PROVIDERS: ADMIT Internal Medicine; ATTEND Internal Medicine
PROC: 02HV33Z Insertion of Infusion Device into Superior Vena Cava, Percutaneous Approach (ICD-10-PCS; 2020-02-15)
PROC: 0JBM0ZZ Excision of Left Upper Leg Subcutaneous Tissue and Fascia, Open Approach (ICD-10-PCS; 2020-02-22)
PROC: 0WUF07Z Supplement Abdominal Wall with Autologous Tissue Substitute, Open Approach (ICD-10-PCS; 2020-02-22)
PROC: 0WQF0ZZ Repair Abdominal Wall, Open Approach (ICD-10-PCS; principal; 2020-02-22 11:30)
DX: T81.8 Other complications of procedures, not elsewhere classified (principal); K63.2 Fistula of intestine; E44.0 Moderate protein-calorie malnutrition; M48.36 Traumatic spondylopathy, lumbar region; T82.856A Stenosis of peripheral vascular stent, initial encounter; E87.2 Acidosis; V89.2XXS Person injured in unspecified motor-vehicle accident, traffic, sequela; G89.21 Chronic pain due to trauma; F17.210 Nicotine dependence, cigarettes, uncomplicated; J44.9 Chronic obstructive pulmonary disease, unspecified; I10 Essential (primary) hypertension; E83.42 Hypomagnesemia; I73.9 Peripheral vascular disease, unspecified; Z20.828 Contact with and (suspected) exposure to other viral communicable diseases; B18.2 Chronic viral hepatitis C; D50.9 Iron deficiency anemia, unspecified; Z79.891 Long term (current) use of opiate analgesic; S31.109S Unspecified open wound of abdominal wall, unspecified quadrant without penetration into peritoneal cavity, sequela; D47.3 Essential (hemorrhagic) thrombocythemia; Z68.29 Body mass index [BMI] 29.0-29.9, adult; F41.9 Anxiety disorder, unspecified
CPT/HCPCS: 36415; 36569; 71045; 74177; 80048; 80053; 80061; 80202; 81001; 82948; 83036; 83735; 84100; 84443; 85025; 85610; 85730; 87086; 93306; 93925; 96360; 96361; 96366; 99251; J0360; J1100; J1170; J1200; J2001; J2250; J2270; J2405; J2543; J2710; J3010; J3370; J3475; J3480; J7030; Q9967; U0002

== ENCOUNTER 2020-03-03 15:48 | Inpatient (IN) | payer MEDICARE ==
[~2020-03-03] VITALS: Ht 167.6 cm; Wt 83.5 kg
[~2020-03-03 15:48] MED LIST: ANORO ELLIPTA1 EACH IH; ASPIRIN CHEW81 MG PO; Atorvastatin PO; BACTRIM DS TAB1 EACH PO; CLOPIDOGREL75 MG PO; DIAZEPAM5 MG PO; DOXYCYCLINE HY100 MG PO; FERROUS FUMARA324 MG PO; GABAPENTIN300 MG PO; LISINOPRIL-HCT1 EACH PO; MIRALAX17 GM PO; MUCINEX D ER T1 EAC1 PO; MULTI-VITAMIN1 EACH PO; NICODERM CQ1 EAC1 TOP; NIFEDIPINE ER30 M1 PO; NORCO 10-325 T1 EACH PO; NORCO 5-325 TA1 EACH PO; NYSTATIN-TRIAMC15 GM TOP; PLAVIX75 MG PO; PROAIR HFA INH8.5 GM HE; TYLENOL # 31 EA PO; ULTRAM 50MG50 MG PO; VENTOLIN HFA18 GM
[2020-03-03 16:30] VITALS: BP 110/78
[2020-03-03 17:03] VITALS: BP 110/78
[2020-03-03] MEDS ORDERED: ACETAMINOPHEN 650 MG SUPP PR PRN (18:30)
[2020-03-03] MEDS ORDERED: HYDRALAZINE HCL 20 MG/ML VIAL IV PRN (18:30)
[2020-03-03] MEDS ORDERED: ONDANSETRON HCL INJ 2MG/ML 2ML 2 MG/ML VIAL IV PRN (18:30)
[2020-03-03] MEDS ORDERED: DEXTROSE 5%/0.45% SOD CHL 1,000 ML IV ONE ×2 (18:30→23:05)
[2020-03-03] MEDS ORDERED: ALBUTEROL SULFATE HFA 8GM INHALATION AEROSOL INH PRN (19:45)
[2020-03-03] MEDS: DIAZEPAM 5 MG TAB PO PRN (20:00)
[2020-03-03] MEDS: MORPHINE SULFATE INJ 2 MG/ML SYR IM PRN (20:00)
[2020-03-03 20:44] VITALS: BP 110/75
[2020-03-03 21:49] VITALS: BP 110/75
[2020-03-03] MEDS: MORPHINE SULFATE INJ 2 MG/ML SYR IV PRN (23:00)
[2020-03-04] VITALS (8 sets, daily range): BP systolic 94–119; BP diastolic 58–78
[2020-03-04] MEDS: MORPHINE SULFATE INJ 2 MG/ML SYR IV PRN ×7 (03:35→21:45)
[2020-03-04 06:39] LABS: BASOPHILS # (AUTO) 0.1 (0.0-0.1); BASOPHILS % 1.4 % (0.0-1.0); EOSINOPHILS # (AUTO) 0.9 (0.0-0.4); EOSINOPHILS % 12.7 % (0.0-6.0); HEMOGLOBIN 11.1 g/dL (14.0-18.0); LYMPHOCYTES # (AUTO) 2.3 (1.0-3.2); LYMPHOCYTES % 33.4 % (18.0-39.1); MEAN CORPUSCULAR HEMOGLOBIN 29.1 pg (28-32); MEAN CORPUSCULAR HGB CONC 31.7 g/dL (31-35); MEAN CORPUSCULAR VOLUME 91.9 fL (81-99); MONOCYTES # (AUTO) 0.8 (0.2-0.8); MONOCYTES % 11.7 % (4.4-11.3); NEUTROPHILS # (AUTO) 2.8 (2.1-6.9); NEUTROPHILS % 40.5 % (38.7-80.0); PLATELET COUNT 405 x10e3/uL (140-360); RED BLOOD COUNT 3.81 x10e6/uL (4.3-5.7); RED CELL DISTRIBUTION WIDTH 15.7 % (11.7-14.4)
[2020-03-04 07:01] LABS: ANION GAP 6.6 mmol/L (8-16); BLOOD UREA NITROGEN 13 mg/dL (7-26); BUN/CREATININE RATIO 13 (6-25); CALCIUM 7.9 mg/dL (8.4-10.2); CARBON DIOXIDE 22 mmol/L (22-29); CHLORIDE 108 mmol/L (98-107); CREATININE, SERUM 0.97 mg/dL (0.72-1.25); EST GLOMERULAR FILTRATION RATE > 60 ML/MIN (60-); GLUCOSE 327 mg/dL (74-118); MAGNESIUM 1.3 MG/DL (1.3-2.1); PHOSPHORUS 3.8 MG/DL (2.3-4.7); POTASSIUM 3.6 mmol/L (3.5-5.1); SODIUM 133 mmol/L (136-145)
[2020-03-04] MEDS: [UNRECOGNIZED DRUG - OTHER] INH SCH (09:00)
[2020-03-04] MEDS: PANTOPRAZOLE 40 MG 10ML VIAL IV SCH ×2 (09:07→15:30)
[2020-03-04] MEDS: NICOTINE 14 MG/EA PATCH TOP SCH (09:07)
[2020-03-04] MEDS: MORPHINE SULFATE INJ 2 MG/ML SYR IM PRN (09:40)
[2020-03-04] MEDS ORDERED: MAGNESIUM SULFATE 2GM/50ML 50 ML IV ONE ×2 (09:45→11:45)
[2020-03-04] MEDS: NYSTATIN/TRIAMCINOLONE 15 GM CR TOP SCH ×2 (10:06→15:30)
[2020-03-04] MEDS ORDERED: DEXTROSE 5%/0.9% SOD CHL 1,000 ML IV ONE (11:00)
[2020-03-04] MEDS: CENTRAL TPN FORMULA 1 BAG IV SCH ×2 (19:45→20:00)
[2020-03-05] VITALS (8 sets, daily range): BP systolic 106–132; BP diastolic 68–96
[2020-03-05] MEDS: MORPHINE SULFATE INJ 2 MG/ML SYR IV PRN ×7 (01:05→20:22)
[2020-03-05 06:40] LABS: INR 1.1; PROTHROMBIN TIME 14.8 seconds (11.9-14.5)
[2020-03-05 06:41] LABS: PARTIAL THROMBOPLASTIN TIME 30.1 seconds (23.8-35.5)
[2020-03-05] MEDS: NICOTINE 14 MG/EA PATCH TOP SCH (08:11)
[2020-03-05] MEDS: NYSTATIN/TRIAMCINOLONE 15 GM CR TOP SCH ×2 (08:11→17:00)
[2020-03-05] MEDS: PANTOPRAZOLE 40 MG 10ML VIAL IV SCH ×2 (08:11→17:00)
[2020-03-05] MEDS: [UNRECOGNIZED DRUG - OTHER] INH SCH (09:00)
[2020-03-05 09:13] LABS: BASOPHILS # (AUTO) 0.1 (0.0-0.1); BASOPHILS % 1.5 % (0.0-1.0); EOSINOPHILS % 16.9 % (0.0-6.0); HEMATOCRIT 35.8 % (38.2-49.6); HEMOGLOBIN 11.3 g/dL (14.0-18.0); LYMPHOCYTES # (AUTO) 1.9 (1.0-3.2); LYMPHOCYTES % 32.9 % (18.0-39.1); MEAN CORPUSCULAR HEMOGLOBIN 29.8 pg (28-32); MEAN CORPUSCULAR HGB CONC 31.6 g/dL (31-35); MEAN CORPUSCULAR VOLUME 94.5 fL (81-99); MONOCYTES # (AUTO) 0.6 (0.2-0.8); MONOCYTES % 10.6 % (4.4-11.3); NEUTROPHILS # (AUTO) 2.2 (2.1-6.9); NEUTROPHILS % 37.8 % (38.7-80.0); PLATELET COUNT 429 x10e3/uL (140-360); RED BLOOD COUNT 3.79 x10e6/uL (4.3-5.7); RED CELL DISTRIBUTION WIDTH 15.7 % (11.7-14.4)
[2020-03-05 10:52] LABS: ALANINE AMINOTRANSFERASE 23 IU/L (0-55); ALBUMIN 2.6 g/dL (3.5-5.0); ALBUMIN/GLOBULIN RATIO 0.5 (0.8-2.0); ALKALINE PHOSPHATASE 94 IU/L (40-150); ANION GAP 8.8 mmol/L (8-16); BLOOD UREA NITROGEN 12 mg/dL (7-26); BUN/CREATININE RATIO 14 (6-25); CALCIUM 8.3 mg/dL (8.4-10.2); CARBON DIOXIDE 24 mmol/L (22-29); CHLORIDE 109 mmol/L (98-107); CREATININE, SERUM 0.86 mg/dL (0.72-1.25); EST GLOMERULAR FILTRATION RATE > 60 ML/MIN (60-); GLUCOSE 89 mg/dL (74-118); POTASSIUM 3.8 mmol/L (3.5-5.1); SODIUM 138 mmol/L (136-145)
[2020-03-05 11:09] LABS: MAGNESIUM 1.8 MG/DL (1.3-2.1); PHOSPHORUS 4.1 MG/DL (2.3-4.7)
[2020-03-05] MEDS: CENTRAL TPN FORMULA 1 BAG IV SCH (21:18)
[2020-03-06] VITALS (8 sets, daily range): BP systolic 112–135; BP diastolic 73–88
[2020-03-06] MEDS: MORPHINE SULFATE INJ 2 MG/ML SYR IV PRN ×7 (00:15→21:04)
[2020-03-06 05:34] LABS: BASOPHILS # (AUTO) 0.1 (0.0-0.1); BASOPHILS % 1.3 % (0.0-1.0); EOSINOPHILS # (AUTO) 0.9 (0.0-0.4); HEMATOCRIT 35.7 % (38.2-49.6); HEMOGLOBIN 11.6 g/dL (14.0-18.0); LYMPHOCYTES # (AUTO) 2.5 (1.0-3.2); LYMPHOCYTES % 31.2 % (18.0-39.1); MEAN CORPUSCULAR HEMOGLOBIN 29.4 pg (28-32); MEAN CORPUSCULAR HGB CONC 32.5 g/dL (31-35); MEAN CORPUSCULAR VOLUME 90.4 fL (81-99); MONOCYTES # (AUTO) 0.9 (0.2-0.8); MONOCYTES % 10.8 % (4.4-11.3); NEUTROPHILS # (AUTO) 3.7 (2.1-6.9); NEUTROPHILS % 45.5 % (38.7-80.0); PLATELET COUNT 475 x10e3/uL (140-360); RED BLOOD COUNT 3.95 x10e6/uL (4.3-5.7)
[2020-03-06 06:01] LABS: ALANINE AMINOTRANSFERASE 17 IU/L (0-55); ALBUMIN 2.8 g/dL (3.5-5.0); ALBUMIN/GLOBULIN RATIO 0.6 (0.8-2.0); ALKALINE PHOSPHATASE 89 IU/L (40-150); ANION GAP 12.6 mmol/L (8-16); BLOOD UREA NITROGEN 14 mg/dL (7-26); BUN/CREATININE RATIO 16 (6-25); CALCIUM 8.6 mg/dL (8.4-10.2); CARBON DIOXIDE 20 mmol/L (22-29); CHLORIDE 107 mmol/L (98-107); CREATININE, SERUM 0.86 mg/dL (0.72-1.25); EST GLOMERULAR FILTRATION RATE > 60 ML/MIN (60-); GLUCOSE 117 mg/dL (74-118); MAGNESIUM 1.5 MG/DL (1.3-2.1); POTASSIUM 3.6 mmol/L (3.5-5.1); SODIUM 136 mmol/L (136-145)
[2020-03-06] MEDS: PANTOPRAZOLE 40 MG 10ML VIAL IV SCH ×2 (08:37→15:29)
[2020-03-06] MEDS: NYSTATIN/TRIAMCINOLONE 15 GM CR TOP SCH ×2 (08:37→15:29)
[2020-03-06] MEDS: [UNRECOGNIZED DRUG - OTHER] INH SCH (08:37)
[2020-03-06] MEDS: NICOTINE 14 MG/EA PATCH TOP SCH (08:37)
[2020-03-06] MEDS: DIAZEPAM 5 MG TAB PO PRN (18:17)
[2020-03-06] MEDS: CENTRAL TPN FORMULA 1 BAG IV SCH (21:14)
[2020-03-07] VITALS (8 sets, daily range): BP systolic 101–124; BP diastolic 76–87
[2020-03-07] MEDS: MORPHINE SULFATE INJ 2 MG/ML SYR IV PRN ×8 (01:40→23:09)
[2020-03-07 05:24] LABS: BASOPHILS # (AUTO) 0.1 (0.0-0.1); BASOPHILS % 1.5 % (0.0-1.0); EOSINOPHILS # (AUTO) 0.7 (0.0-0.4); EOSINOPHILS % 8.6 % (0.0-6.0); HEMATOCRIT 37.8 % (38.2-49.6); HEMOGLOBIN 12.3 g/dL (14.0-18.0); LYMPHOCYTES # (AUTO) 2.4 (1.0-3.2); LYMPHOCYTES % 29.6 % (18.0-39.1); MEAN CORPUSCULAR HEMOGLOBIN 29.2 pg (28-32); MEAN CORPUSCULAR HGB CONC 32.5 g/dL (31-35); MEAN CORPUSCULAR VOLUME 89.8 fL (81-99); MONOCYTES # (AUTO) 0.8 (0.2-0.8); MONOCYTES % 10.2 % (4.4-11.3); NEUTROPHILS % 49.9 % (38.7-80.0); PLATELET COUNT 503 x10e3/uL (140-360); RED BLOOD COUNT 4.21 x10e6/uL (4.3-5.7); RED CELL DISTRIBUTION WIDTH 14.8 % (11.7-14.4)
[2020-03-07 05:51] LABS: ALANINE AMINOTRANSFERASE 13 IU/L (0-55); ALBUMIN 2.8 g/dL (3.5-5.0); ALBUMIN/GLOBULIN RATIO 0.5 (0.8-2.0); ALKALINE PHOSPHATASE 98 IU/L (40-150); ANION GAP 12.7 mmol/L (8-16); BLOOD UREA NITROGEN 14 mg/dL (7-26); BUN/CREATININE RATIO 16 (6-25); CARBON DIOXIDE 20 mmol/L (22-29); CHLORIDE 107 mmol/L (98-107); CREATININE, SERUM 0.85 mg/dL (0.72-1.25); EST GLOMERULAR FILTRATION RATE > 60 ML/MIN (60-); GLUCOSE 144 mg/dL (74-118); POTASSIUM 3.7 mmol/L (3.5-5.1); SODIUM 136 mmol/L (136-145)
[2020-03-07 06:08] LABS: PHOSPHORUS 4.6 MG/DL (2.3-4.7)
[2020-03-07 06:18] LABS: MAGNESIUM 1.7 MG/DL (1.3-2.1)
[2020-03-07] MEDS: NICOTINE 14 MG/EA PATCH TOP SCH (08:06)
[2020-03-07] MEDS: [UNRECOGNIZED DRUG - OTHER] INH SCH (08:06)
[2020-03-07] MEDS: PANTOPRAZOLE 40 MG 10ML VIAL IV SCH ×2 (08:06→16:00)
[2020-03-07] MEDS: NYSTATIN/TRIAMCINOLONE 15 GM CR TOP SCH ×2 (08:08→16:00)
[2020-03-07] MEDS: CENTRAL TPN FORMULA 1 BAG IV SCH (20:00)
[2020-03-07] MEDS: MELATONIN 5 MG TABLET PO PRN (20:03)
[2020-03-07] MEDS ORDERED: MELATONIN 5 MG TABLET PO SCH (21:00)
[2020-03-08] VITALS (8 sets, daily range): BP systolic 109–148; BP diastolic 72–97
[2020-03-08] MEDS: MORPHINE SULFATE INJ 2 MG/ML SYR IV PRN ×3 (02:05→08:10)
[2020-03-08 06:46] LABS: ALANINE AMINOTRANSFERASE 12 IU/L (0-55); ALBUMIN 2.7 g/dL (3.5-5.0); ALBUMIN/GLOBULIN RATIO 0.5 (0.8-2.0); ALKALINE PHOSPHATASE 89 IU/L (40-150); ANION GAP 12.4 mmol/L (8-16); BLOOD UREA NITROGEN 16 mg/dL (7-26); BUN/CREATININE RATIO 16 (6-25); CARBON DIOXIDE 20 mmol/L (22-29); CHLORIDE 106 mmol/L (98-107); CREATININE, SERUM 0.97 mg/dL (0.72-1.25); EST GLOMERULAR FILTRATION RATE > 60 ML/MIN (60-); GLUCOSE 351 mg/dL (74-118); POTASSIUM 4.4 mmol/L (3.5-5.1); SODIUM 134 mmol/L (136-145)
[2020-03-08 06:57] LABS: MAGNESIUM 1.9 MG/DL (1.3-2.1); PHOSPHORUS 5.7 MG/DL (2.3-4.7)
[2020-03-08 07:18] LABS: BASOPHILS # (AUTO) 0.1 (0.0-0.1); BASOPHILS % 1.4 % (0.0-1.0); EOSINOPHILS % 12.5 % (0.0-6.0); HEMATOCRIT 37.6 % (38.2-49.6); HEMOGLOBIN 12.2 g/dL (14.0-18.0); LYMPHOCYTES # (AUTO) 2.1 (1.0-3.2); LYMPHOCYTES % 26.5 % (18.0-39.1); MEAN CORPUSCULAR HEMOGLOBIN 29.8 pg (28-32); MEAN CORPUSCULAR HGB CONC 32.4 g/dL (31-35); MEAN CORPUSCULAR VOLUME 91.7 fL (81-99); MONOCYTES # (AUTO) 0.6 (0.2-0.8); MONOCYTES % 7.6 % (4.4-11.3); NEUTROPHILS % 51.7 % (38.7-80.0); PLATELET COUNT 514 x10e3/uL (140-360); RED CELL DISTRIBUTION WIDTH 14.9 % (11.7-14.4)
[2020-03-08] MEDS: [UNRECOGNIZED DRUG - OTHER] INH SCH (08:01)
[2020-03-08] MEDS: PANTOPRAZOLE 40 MG 10ML VIAL IV SCH ×2 (08:15→16:00)
[2020-03-08] MEDS: NICOTINE 14 MG/EA PATCH TOP SCH (08:15)
[2020-03-08] MEDS: NYSTATIN/TRIAMCINOLONE 15 GM CR TOP SCH ×2 (08:16→16:02)
[2020-03-08] MEDS ORDERED: GENTAMICIN SULFATE 40 MG/ML 2 ML VIAL ONE (09:16)
[2020-03-08] MEDS ORDERED: DIPHENHYDRAMINE HCL INJ 50 MG/ML VIAL IM PRN (11:30)
[2020-03-08] MEDS ORDERED: ACETAMINOPHEN 1000 MG/100 ML IV PRN (11:30)
[2020-03-08] MEDS ORDERED: NALOXONE HCL INJ 0.4 MG/ML AMP IV PRN (11:30)
[2020-03-08] MEDS ORDERED: KETOROLAC TROMETHAMINE 30 MG/ML VIAL IV PRN (11:30)
[2020-03-08] MEDS ORDERED: SODIUM CHLORIDE 0.9% 250ML IRRIG IR SCH (11:30)
[2020-03-08] MEDS ORDERED: ONDANSETRON HCL INJ 2MG/ML 2ML 2 MG/ML VIAL IV PRN (11:30)
[2020-03-08] MEDS ORDERED: CEFOXITIN 1GM/0.9% NS 50ML 50 ML IV SCH (12:00)
[2020-03-08] MEDS ORDERED: MORPHINE SULFATE 1 MG/ML 30ML PCA ONE (12:06)
[2020-03-08] MEDS ORDERED: HYDROMORPHONE 1MG/1ML INJ ONE (12:09)
[2020-03-08] MEDS ORDERED: FENTANYL CITRATE/PF 100MCG/2 ML INJ ONE (12:35)
[2020-03-08] MEDS ORDERED: MIDAZOLAM HCL 2 MG/2 ML VIAL ONE (12:35)
[2020-03-08] MEDS ORDERED: KETAMINE HCL INJ 50 MG/ML 10 ML VIAL ONE (12:35)
[2020-03-08] MEDS ORDERED: MORPHINE SULFATE INJ 10 MG/ML ONE (12:35)
[2020-03-08] MEDS ORDERED: PROPOFOL IV EMULSION 10 MG/ML 20 ML VIAL ONE (14:19)
[2020-03-08] MEDS ORDERED: NEOSTIGMINE 1 MG/ML 10ML VIAL ONE (14:19)
[2020-03-08] MEDS ORDERED: CEFOXITIN SOD 1 GM VIAL ONE (14:19)
[2020-03-08] MEDS ORDERED: GLYCOPYRROLATE INJ 0.2 MG/ML VIAL ONE (14:19)
[2020-03-08] MEDS ORDERED: ROCURONIUM BROMIDE 10 MG/ML 5ML VIAL IV ONE (14:19)
[2020-03-08] MEDS ORDERED: ONDANSETRON HCL INJ 2MG/ML 2ML 2 MG/ML VIAL ONE (14:19)
[2020-03-08] MEDS ORDERED: ETOMIDATE 2 MG/ML 10 ML INJ IV ONE (14:19)
[2020-03-08] MEDS ORDERED: DESFLURANE 240 ML BTL INH ONE (14:19)
[2020-03-08] MEDS ORDERED: DEXAMETHASONE SOD PHOS INJ 4 MG/ML VIAL ONE (14:19)
[2020-03-08] MEDS: DEXTROSE 5%/LACTATED RINGERS 1,000 ML IV SCH ×2 (15:11→21:45)
[2020-03-08] MEDS: SODIUM CHLORIDE 0.9% 250ML IRRIG IR SCH ×2 (15:12→19:30)
[2020-03-08] MEDS: CEFOXITIN 1GM/0.9% NS 50ML 50 ML IV SCH ×2 (15:48→21:45)
[2020-03-08] MEDS ORDERED: CENTRAL TPN FORMULA 1 BAG IV SCH (20:00)
[2020-03-08] MEDS: MORPHINE SULFATE 1 MG/ML 30ML PCA IV PRN (21:42)
[2020-03-09] VITALS (7 sets, daily range): BP systolic 116–146; BP diastolic 79–98
[2020-03-09] MEDS: SODIUM CHLORIDE 0.9% 250ML IRRIG IR SCH ×6 (00:07→19:59)
[2020-03-09] MEDS: CEFOXITIN 1GM/0.9% NS 50ML 50 ML IV SCH ×4 (03:02→21:20)
[2020-03-09] MEDS: DEXTROSE 5%/LACTATED RINGERS 1,000 ML IV SCH ×3 (03:30→18:39)
[2020-03-09] MEDS: MORPHINE SULFATE 1 MG/ML 30ML PCA IV PRN ×2 (07:48→18:30)
[2020-03-09 08:07] LABS: BASOPHILS # (AUTO) 0.1 (0.0-0.1); BASOPHILS % 0.4 % (0.0-1.0); EOSINOPHILS % 0.2 % (0.0-6.0); HEMATOCRIT 39.9 % (38.2-49.6); HEMOGLOBIN 12.7 g/dL (14.0-18.0); LYMPHOCYTES # (AUTO) 3.9 (1.0-3.2); LYMPHOCYTES % 22.9 % (18.0-39.1); MEAN CORPUSCULAR HEMOGLOBIN 29.1 pg (28-32); MEAN CORPUSCULAR HGB CONC 31.8 g/dL (31-35); MEAN CORPUSCULAR VOLUME 91.3 fL (81-99); MONOCYTES # (AUTO) 1.3 (0.2-0.8); MONOCYTES % 7.5 % (4.4-11.3); NEUTROPHILS # (AUTO) 11.6 (2.1-6.9); NEUTROPHILS % 68.6 % (38.7-80.0); PLATELET COUNT 479 x10e3/uL (140-360); RED BLOOD COUNT 4.37 x10e6/uL (4.3-5.7); RED CELL DISTRIBUTION WIDTH 14.9 % (11.7-14.4)
[2020-03-09 08:35] LABS: MAGNESIUM 1.6 MG/DL (1.3-2.1); PHOSPHORUS 4.1 MG/DL (2.3-4.7)
[2020-03-09] MEDS: NYSTATIN/TRIAMCINOLONE 15 GM CR TOP SCH ×2 (09:00→16:13)
[2020-03-09] MEDS: [UNRECOGNIZED DRUG - OTHER] INH SCH (09:00)
[2020-03-09 09:17] LABS: ALANINE AMINOTRANSFERASE 31 IU/L (0-55); ALBUMIN 2.4 g/dL (3.5-5.0); ALBUMIN/GLOBULIN RATIO 0.5 (0.8-2.0); ALKALINE PHOSPHATASE 101 IU/L (40-150); ANION GAP 11.2 mmol/L (8-16); BLOOD UREA NITROGEN 23 mg/dL (7-26); BUN/CREATININE RATIO 25 (6-25); CALCIUM 8.5 mg/dL (8.4-10.2); CARBON DIOXIDE 21 mmol/L (22-29); CHLORIDE 108 mmol/L (98-107); CREATININE, SERUM 0.93 mg/dL (0.72-1.25); EST GLOMERULAR FILTRATION RATE > 60 ML/MIN (60-); GLUCOSE 131 mg/dL (74-118); POTASSIUM 4.2 mmol/L (3.5-5.1); SODIUM 136 mmol/L (136-145)
[2020-03-09] MEDS: NICOTINE 14 MG/EA PATCH TOP SCH (09:30)
[2020-03-09] MEDS: PANTOPRAZOLE 40 MG 10ML VIAL IV SCH ×2 (09:33→16:22)
[2020-03-09] MEDS ORDERED: MAGNESIUM SULFATE 2GM/50ML 50 ML IV ONE (10:15)
[2020-03-09] MEDS ORDERED: CENTRAL TPN FORMULA 1 BAG IV SCH (20:00)
[2020-03-10] VITALS: BP 115/78
[2020-03-10] MEDS: SODIUM CHLORIDE 0.9% 250ML IRRIG IR SCH ×6 (00:20→20:11)
[2020-03-10] MEDS: CEFOXITIN 1GM/0.9% NS 50ML 50 ML IV SCH ×4 (03:17→20:09)
[2020-03-10 04:00] VITALS: BP 122/82
[2020-03-10] MEDS: MORPHINE SULFATE 1 MG/ML 30ML PCA IV PRN (04:10)
[2020-03-10] MEDS: SODIUM CHLORIDE 0.9% 1000ML 1,000 ML IV SCH (05:00)
[2020-03-10 08:09] VITALS: BP 105/79
[2020-03-10 08:16] LABS: BASOPHILS # (AUTO) 0.1 (0.0-0.1); BASOPHILS % 0.7 % (0.0-1.0); EOSINOPHILS # (AUTO) 0.6 (0.0-0.4); EOSINOPHILS % 3.7 % (0.0-6.0); HEMATOCRIT 33.7 % (38.2-49.6); HEMOGLOBIN 10.7 g/dL (14.0-18.0); LYMPHOCYTES # (AUTO) 2.9 (1.0-3.2); LYMPHOCYTES % 18.7 % (18.0-39.1); MEAN CORPUSCULAR HEMOGLOBIN 29.1 pg (28-32); MEAN CORPUSCULAR HGB CONC 31.8 g/dL (31-35); MEAN CORPUSCULAR VOLUME 91.6 fL (81-99); MONOCYTES # (AUTO) 1.2 (0.2-0.8); MONOCYTES % 7.9 % (4.4-11.3); NEUTROPHILS # (AUTO) 10.6 (2.1-6.9); NEUTROPHILS % 68.5 % (38.7-80.0); PLATELET COUNT 451 x10e3/uL (140-360); RED BLOOD COUNT 3.68 x10e6/uL (4.3-5.7); RED CELL DISTRIBUTION WIDTH 14.9 % (11.7-14.4)
[2020-03-10 08:25] VITALS: BP 103/79
[2020-03-10] MEDS: [UNRECOGNIZED DRUG - OTHER] INH SCH (09:00)
[2020-03-10 09:07] LABS: ALANINE AMINOTRANSFERASE 17 IU/L (0-55); ALBUMIN 2.2 g/dL (3.5-5.0); ALBUMIN/GLOBULIN RATIO 0.4 (0.8-2.0); ALKALINE PHOSPHATASE 91 IU/L (40-150); ANION GAP 13.2 mmol/L (8-16); BLOOD UREA NITROGEN 17 mg/dL (7-26); BUN/CREATININE RATIO 21 (6-25); CALCIUM 8.3 mg/dL (8.4-10.2); CARBON DIOXIDE 20 mmol/L (22-29); CHLORIDE 106 mmol/L (98-107); CREATININE, SERUM 0.82 mg/dL (0.72-1.25); EST GLOMERULAR FILTRATION RATE > 60 ML/MIN (60-); GLUCOSE 127 mg/dL (74-118); PHOSPHORUS 3.7 MG/DL (2.3-4.7); POTASSIUM 4.2 mmol/L (3.5-5.1); SODIUM 135 mmol/L (136-145)
[2020-03-10] MEDS: PANTOPRAZOLE 40 MG 10ML VIAL IV SCH ×2 (09:13→15:44)
[2020-03-10] MEDS: NICOTINE 14 MG/EA PATCH TOP SCH (09:19)
[2020-03-10 09:20] LABS: MAGNESIUM 1.6 MG/DL (1.3-2.1)
[2020-03-10] MEDS: NYSTATIN/TRIAMCINOLONE 15 GM CR TOP SCH ×2 (09:20→15:44)
[2020-03-10 12:02] VITALS: BP 127/83
[2020-03-10 16:26] VITALS: BP 115/82
[2020-03-10] MEDS: CENTRAL TPN FORMULA 1 BAG IV SCH (20:09)
[2020-03-11] VITALS (8 sets, daily range): BP systolic 112–134; BP diastolic 71–83
[2020-03-11] MEDS: SODIUM CHLORIDE 0.9% 250ML IRRIG IR SCH ×6 (00:08→19:56)
[2020-03-11] MEDS: SODIUM CHLORIDE 0.9% 1000ML 1,000 ML IV SCH ×2 (00:24→21:58)
[2020-03-11] MEDS: CEFOXITIN 1GM/0.9% NS 50ML 50 ML IV SCH ×4 (03:21→21:58)
[2020-03-11] MEDS: MORPHINE SULFATE 1 MG/ML 30ML PCA IV PRN (05:13)
[2020-03-11 06:56] LABS: BASOPHILS # (AUTO) 0.1 (0.0-0.1); BASOPHILS % 0.7 % (0.0-1.0); EOSINOPHILS # (AUTO) 1.1 (0.0-0.4); EOSINOPHILS % 8.1 % (0.0-6.0); HEMATOCRIT 32.8 % (38.2-49.6); HEMOGLOBIN 10.2 g/dL (14.0-18.0); LYMPHOCYTES # (AUTO) 2.3 (1.0-3.2); LYMPHOCYTES % 17.5 % (18.0-39.1); MEAN CORPUSCULAR HEMOGLOBIN 29.5 pg (28-32); MEAN CORPUSCULAR HGB CONC 31.1 g/dL (31-35); MEAN CORPUSCULAR VOLUME 94.8 fL (81-99); MONOCYTES # (AUTO) 1.2 (0.2-0.8); MONOCYTES % 8.8 % (4.4-11.3); NEUTROPHILS # (AUTO) 8.7 (2.1-6.9); NEUTROPHILS % 64.5 % (38.7-80.0); PLATELET COUNT 435 x10e3/uL (140-360); RED BLOOD COUNT 3.46 x10e6/uL (4.3-5.7); RED CELL DISTRIBUTION WIDTH 14.8 % (11.7-14.4)
[2020-03-11] MEDS: [UNRECOGNIZED DRUG - OTHER] INH SCH (07:35)
[2020-03-11 07:43] LABS: MAGNESIUM 1.7 MG/DL (1.3-2.1); PHOSPHORUS 4.4 MG/DL (2.3-4.7)
[2020-03-11 07:58] LABS: ALANINE AMINOTRANSFERASE 16 IU/L (0-55); ALBUMIN/GLOBULIN RATIO 0.4 (0.8-2.0); ALKALINE PHOSPHATASE 80 IU/L (40-150); ANION GAP 29.4 mmol/L (8-16); BLOOD UREA NITROGEN 17 mg/dL (7-26); BUN/CREATININE RATIO 18 (6-25); CALCIUM 8.3 mg/dL (8.4-10.2); CARBON DIOXIDE 19 mmol/L (22-29); CHLORIDE 91 mmol/L (98-107); CREATININE, SERUM 0.95 mg/dL (0.72-1.25); EST GLOMERULAR FILTRATION RATE > 60 ML/MIN (60-); GLUCOSE 126 mg/dL (74-118); POTASSIUM 3.4 mmol/L (3.5-5.1); SODIUM 136 mmol/L (136-145)
[2020-03-11] MEDS: NYSTATIN/TRIAMCINOLONE 15 GM CR TOP SCH ×2 (09:00→16:30)
[2020-03-11] MEDS: NICOTINE 14 MG/EA PATCH TOP SCH (10:12)
[2020-03-11] MEDS: PANTOPRAZOLE 40 MG 10ML VIAL IV SCH ×2 (10:12→16:30)
[2020-03-11] MEDS ORDERED: POTASSIUM CHLORIDE 20MEQ/100ML 100 ML IV ONE (11:00)
[2020-03-11] MEDS: CENTRAL TPN FORMULA 1 BAG IV SCH (20:09)
[2020-03-12] VITALS (7 sets, daily range): BP systolic 110–125; BP diastolic 73–82
[2020-03-12] MEDS: SODIUM CHLORIDE 0.9% 250ML IRRIG IR SCH ×8 (00:07→21:29)
[2020-03-12] MEDS: MELATONIN 5 MG TABLET PO PRN (00:13)
[2020-03-12] MEDS: CEFOXITIN 1GM/0.9% NS 50ML 50 ML IV SCH ×4 (03:01→21:00)
[2020-03-12 06:23] LABS: BASOPHILS # (AUTO) 0.1 (0.0-0.1); BASOPHILS % 0.7 % (0.0-1.0); EOSINOPHILS # (AUTO) 0.9 (0.0-0.4); EOSINOPHILS % 7.6 % (0.0-6.0); HEMATOCRIT 33.1 % (38.2-49.6); HEMOGLOBIN 10.5 g/dL (14.0-18.0); LYMPHOCYTES # (AUTO) 2.2 (1.0-3.2); LYMPHOCYTES % 17.8 % (18.0-39.1); MEAN CORPUSCULAR HEMOGLOBIN 28.5 pg (28-32); MEAN CORPUSCULAR HGB CONC 31.7 g/dL (31-35); MEAN CORPUSCULAR VOLUME 89.9 fL (81-99); MONOCYTES # (AUTO) 1.1 (0.2-0.8); MONOCYTES % 8.6 % (4.4-11.3); NEUTROPHILS # (AUTO) 7.9 (2.1-6.9); NEUTROPHILS % 64.2 % (38.7-80.0); PLATELET COUNT 504 x10e3/uL (140-360); RED BLOOD COUNT 3.68 x10e6/uL (4.3-5.7); RED CELL DISTRIBUTION WIDTH 14.6 % (11.7-14.4)
[2020-03-12 06:51] LABS: MAGNESIUM 1.6 MG/DL (1.3-2.1); PHOSPHORUS 4.3 MG/DL (2.3-4.7)
[2020-03-12 07:13] LABS: ALANINE AMINOTRANSFERASE 17 IU/L (0-55); ALBUMIN/GLOBULIN RATIO 0.4 (0.8-2.0); ALKALINE PHOSPHATASE 101 IU/L (40-150); ANION GAP 11.8 mmol/L (8-16); BLOOD UREA NITROGEN 15 mg/dL (7-26); BUN/CREATININE RATIO 19 (6-25); CALCIUM 8.2 mg/dL (8.4-10.2); CARBON DIOXIDE 19 mmol/L (22-29); CHLORIDE 107 mmol/L (98-107); CREATININE, SERUM 0.81 mg/dL (0.72-1.25); EST GLOMERULAR FILTRATION RATE > 60 ML/MIN (60-); GLUCOSE 135 mg/dL (74-118); POTASSIUM 3.8 mmol/L (3.5-5.1); SODIUM 134 mmol/L (136-145)
[2020-03-12] MEDS: [UNRECOGNIZED DRUG - OTHER] INH SCH (09:00)
[2020-03-12] MEDS: NICOTINE 14 MG/EA PATCH TOP SCH (09:56)
[2020-03-12] MEDS: NYSTATIN/TRIAMCINOLONE 15 GM CR TOP SCH ×2 (09:56→17:53)
[2020-03-12] MEDS: PANTOPRAZOLE 40 MG 10ML VIAL IV SCH ×2 (09:56→17:53)
[2020-03-12] MEDS: SODIUM CHLORIDE 0.9% 1000ML 1,000 ML IV SCH (17:54)
[2020-03-12] MEDS ORDERED: ALBUTEROL/IPRATROPIUM 3 ML NEB NEB PRN (18:15)
[2020-03-12] MEDS: CENTRAL TPN FORMULA 1 BAG IV SCH (20:00)
[2020-03-13] VITALS (8 sets, daily range): BP systolic 103–131; BP diastolic 80–85
[2020-03-13] MEDS: MORPHINE SULFATE 1 MG/ML 30ML PCA IV PRN (01:56)
[2020-03-13] MEDS: CEFOXITIN 1GM/0.9% NS 50ML 50 ML IV SCH ×4 (03:00→20:06)
[2020-03-13 05:32] LABS: BASOPHILS # (AUTO) 0.1 (0.0-0.1); BASOPHILS % 0.6 % (0.0-1.0); EOSINOPHILS # (AUTO) 0.6 (0.0-0.4); EOSINOPHILS % 4.6 % (0.0-6.0); HEMATOCRIT 30.7 % (38.2-49.6); LYMPHOCYTES # (AUTO) 2.5 (1.0-3.2); LYMPHOCYTES % 18.8 % (18.0-39.1); MEAN CORPUSCULAR HEMOGLOBIN 29.1 pg (28-32); MEAN CORPUSCULAR HGB CONC 32.6 g/dL (31-35); MEAN CORPUSCULAR VOLUME 89.2 fL (81-99); MONOCYTES # (AUTO) 1.2 (0.2-0.8); MONOCYTES % 8.9 % (4.4-11.3); NEUTROPHILS # (AUTO) 8.7 (2.1-6.9); NEUTROPHILS % 66.5 % (38.7-80.0); PLATELET COUNT 520 x10e3/uL (140-360); RED BLOOD COUNT 3.44 x10e6/uL (4.3-5.7); RED CELL DISTRIBUTION WIDTH 14.6 % (11.7-14.4)
[2020-03-13] MEDS ORDERED: DIPHENHYDRAMINE HCL INJ 50 MG/ML VIAL IM PRN (05:45)
[2020-03-13 06:06] LABS: MAGNESIUM 1.6 MG/DL (1.3-2.1); PHOSPHORUS 4.7 MG/DL (2.3-4.7)
[2020-03-13] MEDS ORDERED: KETOROLAC TROMETHAMINE 30 MG/ML VIAL IM PRN (06:30)
[2020-03-13 06:34] LABS: ALANINE AMINOTRANSFERASE 30 IU/L (0-55); ALBUMIN 1.9 g/dL (3.5-5.0); ALBUMIN/GLOBULIN RATIO 0.3 (0.8-2.0); ALKALINE PHOSPHATASE 106 IU/L (40-150); ANION GAP 9.8 mmol/L (8-16); BLOOD UREA NITROGEN 15 mg/dL (7-26); BUN/CREATININE RATIO 18 (6-25); CALCIUM 8.3 mg/dL (8.4-10.2); CARBON DIOXIDE 22 mmol/L (22-29); CHLORIDE 106 mmol/L (98-107); CREATININE, SERUM 0.83 mg/dL (0.72-1.25); EST GLOMERULAR FILTRATION RATE > 60 ML/MIN (60-); GLUCOSE 125 mg/dL (74-118); POTASSIUM 3.8 mmol/L (3.5-5.1); SODIUM 134 mmol/L (136-145)
[2020-03-13] MEDS: SODIUM CHLORIDE 0.9% 250ML IRRIG IR SCH ×5 (07:30→19:06)
[2020-03-13] MEDS: [UNRECOGNIZED DRUG - OTHER] INH SCH (09:00)
[2020-03-13] MEDS: PANTOPRAZOLE 40 MG 10ML VIAL IV SCH ×2 (09:17→17:21)
[2020-03-13] MEDS: NICOTINE 14 MG/EA PATCH TOP SCH (09:17)
[2020-03-13] MEDS: NYSTATIN/TRIAMCINOLONE 15 GM CR TOP SCH ×2 (09:32→17:21)
[2020-03-13] MEDS: SODIUM CHLORIDE 0.9% 1000ML 1,000 ML IV SCH (16:25)
[2020-03-13] MEDS: CENTRAL TPN FORMULA 1 BAG IV SCH (20:00)
[2020-03-14] VITALS (8 sets, daily range): BP systolic 113–137; BP diastolic 63–90
[2020-03-14] MEDS: CEFOXITIN 1GM/0.9% NS 50ML 50 ML IV SCH ×4 (02:27→21:00)
[2020-03-14] MEDS: SODIUM CHLORIDE 0.9% 250ML IRRIG IR SCH ×3 (07:30→15:30)
[2020-03-14 07:40] LABS: BASOPHILS # (AUTO) 0.1 (0.0-0.1); BASOPHILS % 0.7 % (0.0-1.0); EOSINOPHILS # (AUTO) 0.8 (0.0-0.4); EOSINOPHILS % 6.6 % (0.0-6.0); HEMATOCRIT 32.3 % (38.2-49.6); HEMOGLOBIN 10.5 g/dL (14.0-18.0); LYMPHOCYTES # (AUTO) 2.2 (1.0-3.2); LYMPHOCYTES % 17.7 % (18.0-39.1); MEAN CORPUSCULAR HGB CONC 32.5 g/dL (31-35); MEAN CORPUSCULAR VOLUME 89.2 fL (81-99); MONOCYTES # (AUTO) 1.2 (0.2-0.8); MONOCYTES % 9.2 % (4.4-11.3); NEUTROPHILS # (AUTO) 8.2 (2.1-6.9); NEUTROPHILS % 65.1 % (38.7-80.0); PLATELET COUNT 555 x10e3/uL (140-360); RED BLOOD COUNT 3.62 x10e6/uL (4.3-5.7); RED CELL DISTRIBUTION WIDTH 14.6 % (11.7-14.4)
[2020-03-14 07:59] LABS: BLOOD UREA NITROGEN 15 mg/dL (7-26); BUN/CREATININE RATIO 17 (6-25); CALCIUM 8.4 mg/dL (8.4-10.2); CHLORIDE 106 mmol/L (98-107); CREATININE, SERUM 0.87 mg/dL (0.72-1.25); EST GLOMERULAR FILTRATION RATE > 60 ML/MIN (60-); GLUCOSE 125 mg/dL (74-118); POTASSIUM 3.9 mmol/L (3.5-5.1); SODIUM 133 mmol/L (136-145)
[2020-03-14 08:12] LABS: CARBON DIOXIDE 19 mmol/L (22-29)
[2020-03-14] MEDS: SODIUM CHLORIDE 0.9% 1000ML 1,000 ML IV SCH (08:15)
[2020-03-14 08:16] LABS: ANION GAP 11.9 mmol/L (8-16)
[2020-03-14] MEDS: [UNRECOGNIZED DRUG - OTHER] INH SCH (08:24)
[2020-03-14] MEDS: NYSTATIN/TRIAMCINOLONE 15 GM CR TOP SCH ×2 (10:46→16:30)
[2020-03-14] MEDS: NICOTINE 14 MG/EA PATCH TOP SCH (10:49)
[2020-03-14] MEDS: PANTOPRAZOLE 40 MG 10ML VIAL IV SCH ×2 (10:49→18:16)
[2020-03-14] MEDS: GUAIFENESIN 600MG/DEXTROMETHORPHAN 30MG TABSR PO PRN ×2 (15:37→21:01)
[2020-03-14] MEDS: MORPHINE SULFATE 1 MG/ML 30ML PCA IV PRN (16:40)
[2020-03-14] MEDS ORDERED: CENTRAL TPN FORMULA 1 BAG IV SCH (20:00)
[2020-03-14] MEDS: MELATONIN 5 MG TABLET PO PRN (21:01)
[2020-03-15] VITALS (8 sets, daily range): BP systolic 100–127; BP diastolic 76–81
[2020-03-15] MEDS: CEFOXITIN 1GM/0.9% NS 50ML 50 ML IV SCH ×5 (03:00→20:36)
[2020-03-15] MEDS: SODIUM CHLORIDE 0.9% 1000ML 1,000 ML IV SCH (06:00)
[2020-03-15 06:13] LABS: BASOPHILS # (AUTO) 0.1 (0.0-0.1); BASOPHILS % 1.1 % (0.0-1.0); EOSINOPHILS # (AUTO) 1.1 (0.0-0.4); EOSINOPHILS % 8.5 % (0.0-6.0); HEMATOCRIT 33.5 % (38.2-49.6); HEMOGLOBIN 10.7 g/dL (14.0-18.0); LYMPHOCYTES # (AUTO) 2.4 (1.0-3.2); MEAN CORPUSCULAR HGB CONC 31.9 g/dL (31-35); MEAN CORPUSCULAR VOLUME 90.8 fL (81-99); MONOCYTES # (AUTO) 1.3 (0.2-0.8); MONOCYTES % 10.2 % (4.4-11.3); NEUTROPHILS # (AUTO) 7.4 (2.1-6.9); NEUTROPHILS % 59.7 % (38.7-80.0); PLATELET COUNT 601 x10e3/uL (140-360); RED BLOOD COUNT 3.69 x10e6/uL (4.3-5.7); RED CELL DISTRIBUTION WIDTH 14.7 % (11.7-14.4)
[2020-03-15 06:43] LABS: ANION GAP 12.9 mmol/L (8-16); BLOOD UREA NITROGEN 17 mg/dL (7-26); BUN/CREATININE RATIO 17 (6-25); CALCIUM 8.6 mg/dL (8.4-10.2); CARBON DIOXIDE 20 mmol/L (22-29); CHLORIDE 105 mmol/L (98-107); CREATININE, SERUM 0.99 mg/dL (0.72-1.25); EST GLOMERULAR FILTRATION RATE > 60 ML/MIN (60-); GLUCOSE 128 mg/dL (74-118); POTASSIUM 3.9 mmol/L (3.5-5.1); SODIUM 134 mmol/L (136-145)
[2020-03-15] MEDS: [UNRECOGNIZED DRUG - OTHER] INH SCH (09:00)
[2020-03-15] MEDS: NYSTATIN/TRIAMCINOLONE 15 GM CR TOP SCH ×2 (10:42→17:04)
[2020-03-15] MEDS: NICOTINE 14 MG/EA PATCH TOP SCH (10:56)
[2020-03-15] MEDS: PANTOPRAZOLE 40 MG 10ML VIAL IV SCH ×2 (10:56→17:17)
[2020-03-15] MEDS: GUAIFENESIN 600MG/DEXTROMETHORPHAN 30MG TABSR PO PRN (14:20)
[2020-03-15] MEDS: MORPHINE SULFATE 1 MG/ML 30ML PCA IV PRN (19:21)
[2020-03-15] MEDS: CENTRAL TPN FORMULA 1 BAG IV SCH (20:00)
[2020-03-15] MEDS: DOCUSATE SODIUM 100 MG CAP PO SCH (21:13)
[2020-03-16] VITALS (8 sets, daily range): BP systolic 102–119; BP diastolic 72–83
[2020-03-16] MEDS: SODIUM CHLORIDE 0.9% 1000ML 1,000 ML IV SCH ×2 (00:15→20:15)
[2020-03-16] MEDS ORDERED: MINERAL OIL 132 ML BTL PR ONE (02:30)
[2020-03-16] MEDS: CEFOXITIN 1GM/0.9% NS 50ML 50 ML IV SCH ×4 (03:00→21:21)
[2020-03-16 06:11] LABS: BASOPHILS # (AUTO) 0.1 (0.0-0.1); BASOPHILS % 0.7 % (0.0-1.0); EOSINOPHILS # (AUTO) 0.2 (0.0-0.4); EOSINOPHILS % 1.4 % (0.0-6.0); HEMATOCRIT 32.2 % (38.2-49.6); HEMOGLOBIN 10.2 g/dL (14.0-18.0); LYMPHOCYTES # (AUTO) 1.8 (1.0-3.2); LYMPHOCYTES % 14.6 % (18.0-39.1); MEAN CORPUSCULAR HEMOGLOBIN 28.9 pg (28-32); MEAN CORPUSCULAR HGB CONC 31.7 g/dL (31-35); MEAN CORPUSCULAR VOLUME 91.2 fL (81-99); MONOCYTES # (AUTO) 0.9 (0.2-0.8); MONOCYTES % 6.9 % (4.4-11.3); NEUTROPHILS # (AUTO) 9.4 (2.1-6.9); PLATELET COUNT 554 x10e3/uL (140-360); RED BLOOD COUNT 3.53 x10e6/uL (4.3-5.7); RED CELL DISTRIBUTION WIDTH 14.8 % (11.7-14.4)
[2020-03-16 09:00] LABS: ANION GAP 11.9 mmol/L (8-16); BLOOD UREA NITROGEN 15 mg/dL (7-26); BUN/CREATININE RATIO 18 (6-25); CALCIUM 8.9 mg/dL (8.4-10.2); CARBON DIOXIDE 18 mmol/L (22-29); CHLORIDE 108 mmol/L (98-107); CREATININE, SERUM 0.83 mg/dL (0.72-1.25); EST GLOMERULAR FILTRATION RATE > 60 ML/MIN (60-); GLUCOSE 114 mg/dL (74-118); POTASSIUM 3.9 mmol/L (3.5-5.1); SODIUM 134 mmol/L (136-145)
[2020-03-16] MEDS: DOCUSATE SODIUM 100 MG CAP PO SCH ×2 (10:06→10:21)
[2020-03-16] MEDS: NICOTINE 14 MG/EA PATCH TOP SCH (10:10)
[2020-03-16] MEDS: POLYETHYLENE GLYCOL 3350 17 GM PACK PO SCH (10:21)
[2020-03-16] MEDS: [UNRECOGNIZED DRUG - OTHER] INH SCH (10:21)
[2020-03-16] MEDS: PANTOPRAZOLE 40 MG 10ML VIAL IV SCH ×2 (11:12→16:06)
[2020-03-16] MEDS: NYSTATIN/TRIAMCINOLONE 15 GM CR TOP SCH ×2 (16:06→17:15)
[2020-03-16] MEDS ORDERED: MORPHINE SULFATE 1 MG/ML 30ML PCA IV PRN (17:15)
[2020-03-16] MEDS: CENTRAL TPN FORMULA 1 BAG IV SCH (21:21)
[2020-03-16] MEDS: MORPHINE SULFATE INJ 4 MG/ML INJ 1ML IV PRN (21:45)
[2020-03-16] MEDS: MELATONIN 5 MG TABLET PO PRN (21:47)
[2020-03-17] MEDS: CEFOXITIN 1GM/0.9% NS 50ML 50 ML IV SCH ×4 (02:52→20:21)
[2020-03-17] MEDS: MORPHINE SULFATE INJ 4 MG/ML INJ 1ML IV PRN ×5 (03:03→20:01)
[2020-03-17 04:00] VITALS: BP 98/59
[2020-03-17 06:11] LABS: BASOPHILS # (AUTO) 0.1 (0.0-0.1); BASOPHILS % 0.8 % (0.0-1.0); EOSINOPHILS # (AUTO) 0.9 (0.0-0.4); EOSINOPHILS % 9.8 % (0.0-6.0); HEMATOCRIT 27.2 % (38.2-49.6); HEMOGLOBIN 8.5 g/dL (14.0-18.0); LYMPHOCYTES # (AUTO) 1.7 (1.0-3.2); LYMPHOCYTES % 18.8 % (18.0-39.1); MEAN CORPUSCULAR HEMOGLOBIN 30.2 pg (28-32); MEAN CORPUSCULAR HGB CONC 31.3 g/dL (31-35); MEAN CORPUSCULAR VOLUME 96.8 fL (81-99); MONOCYTES # (AUTO) 0.8 (0.2-0.8); MONOCYTES % 9.5 % (4.4-11.3); NEUTROPHILS # (AUTO) 5.3 (2.1-6.9); PLATELET COUNT 553 x10e3/uL (140-360); RED BLOOD COUNT 2.81 x10e6/uL (4.3-5.7); RED CELL DISTRIBUTION WIDTH 16.1 % (11.7-14.4)
[2020-03-17] MEDS ORDERED: TYLENOL # 31 EA PO ×2 (06:46→06:59)
[2020-03-17] MEDS: [UNRECOGNIZED DRUG - OTHER] INH SCH (07:40)
[2020-03-17 08:07] VITALS: BP 98/59
[2020-03-17] MEDS: CLOPIDOGREL BISULFATE 75 MG TAB PO SCH (08:13)
[2020-03-17] MEDS: ASPIRIN 81 MG CHEW TAB PO SCH (08:13)
[2020-03-17] MEDS: DOCUSATE SODIUM 100 MG CAP PO SCH ×2 (08:13→16:01)
[2020-03-17] MEDS: POLYETHYLENE GLYCOL 3350 17 GM PACK PO SCH (08:13)
[2020-03-17] MEDS: NICOTINE 14 MG/EA PATCH TOP SCH (08:13)
[2020-03-17] MEDS: NYSTATIN/TRIAMCINOLONE 15 GM CR TOP SCH ×2 (08:13→16:01)
[2020-03-17] MEDS: PANTOPRAZOLE 40 MG 10ML VIAL IV SCH ×2 (08:13→16:01)
[2020-03-17 08:20] LABS: ANION GAP 11.9 mmol/L (8-16); BLOOD UREA NITROGEN 15 mg/dL (7-26); BUN/CREATININE RATIO 19 (6-25); CALCIUM 8.3 mg/dL (8.4-10.2); CARBON DIOXIDE 19 mmol/L (22-29); CHLORIDE 108 mmol/L (98-107); CREATININE, SERUM 0.79 mg/dL (0.72-1.25); EST GLOMERULAR FILTRATION RATE > 60 ML/MIN (60-); GLUCOSE 113 mg/dL (74-118); POTASSIUM 3.9 mmol/L (3.5-5.1); SODIUM 135 mmol/L (136-145)
[2020-03-17 11:02] VITALS: BP 94/63
[2020-03-17] MEDS: GUAIFENESIN 600MG/DEXTROMETHORPHAN 30MG TABSR PO PRN ×2 (13:06→23:10)
[2020-03-17] MEDS: SODIUM CHLORIDE 0.9% 1000ML 1,000 ML IV SCH (14:58)
[2020-03-17 15:28] VITALS: BP 106/71
[2020-03-17 20:00] VITALS: BP 118/79
[2020-03-17] MEDS: CENTRAL TPN FORMULA 1 BAG IV SCH (20:21)
[2020-03-17 20:42] VITALS: BP 118/79
[2020-03-17] MEDS: MELATONIN 5 MG TABLET PO PRN (23:10)
[2020-03-18] VITALS (7 sets, daily range): BP systolic 102–111; BP diastolic 69–81
[2020-03-18] MEDS: MORPHINE SULFATE INJ 4 MG/ML INJ 1ML IV PRN ×6 (00:05→22:12)
[2020-03-18] MEDS: CEFOXITIN 1GM/0.9% NS 50ML 50 ML IV SCH ×2 (02:27→08:54)
[2020-03-18] MEDS: SODIUM CHLORIDE 0.9% 1000ML 1,000 ML IV SCH (06:13)
[2020-03-18 06:20] LABS: BASOPHILS # (AUTO) 0.1 (0.0-0.1); BASOPHILS % 1.1 % (0.0-1.0); EOSINOPHILS # (AUTO) 0.9 (0.0-0.4); EOSINOPHILS % 8.9 % (0.0-6.0); HEMATOCRIT 29.2 % (38.2-49.6); HEMOGLOBIN 9.1 g/dL (14.0-18.0); LYMPHOCYTES # (AUTO) 1.8 (1.0-3.2); LYMPHOCYTES % 17.3 % (18.0-39.1); MEAN CORPUSCULAR HEMOGLOBIN 30.4 pg (28-32); MEAN CORPUSCULAR HGB CONC 31.2 g/dL (31-35); MEAN CORPUSCULAR VOLUME 97.7 fL (81-99); MONOCYTES # (AUTO) 0.8 (0.2-0.8); MONOCYTES % 7.6 % (4.4-11.3); NEUTROPHILS # (AUTO) 6.6 (2.1-6.9); PLATELET COUNT 666 x10e3/uL (140-360); RED BLOOD COUNT 2.99 x10e6/uL (4.3-5.7); RED CELL DISTRIBUTION WIDTH 16.6 % (11.7-14.4)
[2020-03-18] MEDS ORDERED: CENTRAL TPN FORMULA 1 BAG IV SCH ×2 (07:14→20:00)
[2020-03-18 07:38] LABS: ALANINE AMINOTRANSFERASE 38 IU/L (0-55); ALBUMIN/GLOBULIN RATIO 0.4 (0.8-2.0); ALKALINE PHOSPHATASE 108 IU/L (40-150); ANION GAP 12.8 mmol/L (8-16); BLOOD UREA NITROGEN 13 mg/dL (7-26); BUN/CREATININE RATIO 16 (6-25); CALCIUM 8.4 mg/dL (8.4-10.2); CARBON DIOXIDE 19 mmol/L (22-29); CHLORIDE 106 mmol/L (98-107); CREATININE, SERUM 0.83 mg/dL (0.72-1.25); EST GLOMERULAR FILTRATION RATE > 60 ML/MIN (60-); GLUCOSE 132 mg/dL (74-118); POTASSIUM 3.8 mmol/L (3.5-5.1); SODIUM 134 mmol/L (136-145)
[2020-03-18] MEDS: PANTOPRAZOLE 40 MG 10ML VIAL IV SCH ×2 (08:54→17:35)
[2020-03-18] MEDS: [UNRECOGNIZED DRUG - OTHER] INH SCH (08:54)
[2020-03-18] MEDS: NICOTINE 14 MG/EA PATCH TOP SCH (08:55)
[2020-03-18] MEDS: DOCUSATE SODIUM 100 MG CAP PO SCH ×2 (08:55→17:35)
[2020-03-18] MEDS: CLOPIDOGREL BISULFATE 75 MG TAB PO SCH (08:55)
[2020-03-18] MEDS: NYSTATIN/TRIAMCINOLONE 15 GM CR TOP SCH ×2 (08:55→17:35)
[2020-03-18] MEDS: POLYETHYLENE GLYCOL 3350 17 GM PACK PO SCH (08:55)
[2020-03-18] MEDS: ASPIRIN 81 MG CHEW TAB PO SCH (08:55)
[2020-03-18] MEDS: MELATONIN 5 MG TABLET PO PRN (22:11)
[2020-03-18] MEDS: GUAIFENESIN 600MG/DEXTROMETHORPHAN 30MG TABSR PO PRN (22:12)
[2020-03-19] VITALS (8 sets, daily range): BP systolic 101–120; BP diastolic 61–81
[2020-03-19] MEDS: SODIUM CHLORIDE 0.9% 1000ML 1,000 ML IV SCH (00:15)
[2020-03-19] MEDS: MORPHINE SULFATE INJ 4 MG/ML INJ 1ML IV PRN ×5 (04:10→21:12)
[2020-03-19] MEDS ORDERED: SODIUM CHLORIDE FLUSH 10 ML SYR INJ PRN (06:30)
[2020-03-19] MEDS: [UNRECOGNIZED DRUG - OTHER] INH SCH (08:39)
[2020-03-19] MEDS: ASPIRIN 81 MG CHEW TAB PO SCH (08:40)
[2020-03-19] MEDS: PANTOPRAZOLE 40 MG 10ML VIAL IV SCH ×2 (08:40→17:07)
[2020-03-19] MEDS: CLOPIDOGREL BISULFATE 75 MG TAB PO SCH (08:40)
[2020-03-19] MEDS: POLYETHYLENE GLYCOL 3350 17 GM PACK PO SCH (08:42)
[2020-03-19] MEDS: NICOTINE 14 MG/EA PATCH TOP SCH (08:42)
[2020-03-19] MEDS: NYSTATIN/TRIAMCINOLONE 15 GM CR TOP SCH ×2 (08:43→17:07)
[2020-03-19] MEDS: DOCUSATE SODIUM 100 MG CAP PO SCH ×2 (09:21→17:07)
[2020-03-19] MEDS: GUAIFENESIN 600MG/DEXTROMETHORPHAN 30MG TABSR PO PRN (20:18)
[2020-03-20] VITALS (8 sets, daily range): BP systolic 99–116; BP diastolic 74–82
[2020-03-20] MEDS: MORPHINE SULFATE INJ 4 MG/ML INJ 1ML IV PRN ×7 (01:07→22:45)
[2020-03-20 06:19] LABS: BASOPHILS # (AUTO) 0.1 (0.0-0.1); BASOPHILS % 0.8 % (0.0-1.0); EOSINOPHILS # (AUTO) 1.1 (0.0-0.4); EOSINOPHILS % 6.8 % (0.0-6.0); HEMATOCRIT 31.2 % (38.2-49.6); HEMOGLOBIN 9.9 g/dL (14.0-18.0); LYMPHOCYTES # (AUTO) 2.8 (1.0-3.2); LYMPHOCYTES % 17.5 % (18.0-39.1); MEAN CORPUSCULAR HEMOGLOBIN 28.8 pg (28-32); MEAN CORPUSCULAR HGB CONC 31.7 g/dL (31-35); MEAN CORPUSCULAR VOLUME 90.7 fL (81-99); MONOCYTES # (AUTO) 1.2 (0.2-0.8); MONOCYTES % 7.5 % (4.4-11.3); NEUTROPHILS # (AUTO) 10.5 (2.1-6.9); NEUTROPHILS % 66.1 % (38.7-80.0); PLATELET COUNT 913 x10e3/uL (140-360); RED BLOOD COUNT 3.44 x10e6/uL (4.3-5.7); RED CELL DISTRIBUTION WIDTH 14.6 % (11.7-14.4)
[2020-03-20] MEDS ORDERED: HYDROCODONE/APAP 7.5MG-325MG 1 EA TAB PO PRN (07:00)
[2020-03-20 07:03] LABS: ANION GAP 11.8 mmol/L (8-16); BLOOD UREA NITROGEN 15 mg/dL (7-26); BUN/CREATININE RATIO 15 (6-25); CALCIUM 8.8 mg/dL (8.4-10.2); CARBON DIOXIDE 21 mmol/L (22-29); CHLORIDE 104 mmol/L (98-107); CREATININE, SERUM 0.97 mg/dL (0.72-1.25); EST GLOMERULAR FILTRATION RATE > 60 ML/MIN (60-); GLUCOSE 113 mg/dL (74-118); MAGNESIUM 1.5 MG/DL (1.3-2.1); POTASSIUM 3.8 mmol/L (3.5-5.1); SODIUM 133 mmol/L (136-145)
[2020-03-20 07:25] LABS: PHOSPHORUS 3.9 MG/DL (2.3-4.7)
[2020-03-20] MEDS: ASPIRIN 81 MG CHEW TAB PO SCH (07:56)
[2020-03-20] MEDS: CLOPIDOGREL BISULFATE 75 MG TAB PO SCH (07:56)
[2020-03-20] MEDS: PANTOPRAZOLE 40 MG 10ML VIAL IV SCH ×2 (07:57→16:42)
[2020-03-20] MEDS: DOCUSATE SODIUM 100 MG CAP PO SCH ×2 (07:57→16:42)
[2020-03-20] MEDS: POLYETHYLENE GLYCOL 3350 17 GM PACK PO SCH (07:57)
[2020-03-20] MEDS: NICOTINE 14 MG/EA PATCH TOP SCH (08:00)
[2020-03-20] MEDS: NYSTATIN/TRIAMCINOLONE 15 GM CR TOP SCH ×2 (08:00→14:13)
[2020-03-20] MEDS: [UNRECOGNIZED DRUG - OTHER] INH SCH (08:00)
[2020-03-20] MEDS ORDERED: ONDANSETRON HCL 4 MG ORAL DISINTEGRATING TAB PO PRN (12:00)
[2020-03-21] VITALS (7 sets, daily range): BP systolic 108–115; BP diastolic 73–80
[2020-03-21] MEDS: MORPHINE SULFATE INJ 4 MG/ML INJ 1ML IV PRN ×5 (04:35→23:21)
[2020-03-21 04:44] LABS: BASOPHILS # (AUTO) 0.1 (0.0-0.1); EOSINOPHILS # (AUTO) 1.1 (0.0-0.4); EOSINOPHILS % 9.1 % (0.0-6.0); HEMATOCRIT 30.7 % (38.2-49.6); HEMOGLOBIN 9.9 g/dL (14.0-18.0); LYMPHOCYTES # (AUTO) 2.3 (1.0-3.2); LYMPHOCYTES % 19.1 % (18.0-39.1); MEAN CORPUSCULAR HEMOGLOBIN 28.4 pg (28-32); MEAN CORPUSCULAR HGB CONC 32.2 g/dL (31-35); MONOCYTES # (AUTO) 1.1 (0.2-0.8); MONOCYTES % 8.9 % (4.4-11.3); NEUTROPHILS # (AUTO) 7.4 (2.1-6.9); NEUTROPHILS % 60.8 % (38.7-80.0); PLATELET COUNT 1036 x10e3/uL (140-360); RED BLOOD COUNT 3.49 x10e6/uL (4.3-5.7); RED CELL DISTRIBUTION WIDTH 14.4 % (11.7-14.4)
[2020-03-21 05:09] LABS: ANION GAP 11.6 mmol/L (8-16); BLOOD UREA NITROGEN 15 mg/dL (7-26); BUN/CREATININE RATIO 17 (6-25); CALCIUM 8.8 mg/dL (8.4-10.2); CARBON DIOXIDE 23 mmol/L (22-29); CHLORIDE 105 mmol/L (98-107); CREATININE, SERUM 0.86 mg/dL (0.72-1.25); EST GLOMERULAR FILTRATION RATE > 60 ML/MIN (60-); GLUCOSE 105 mg/dL (74-118); POTASSIUM 3.6 mmol/L (3.5-5.1); SODIUM 136 mmol/L (136-145)
[2020-03-21 06:59] LABS: PLATELET ESTIMATE MARKEDLY INCREASED; PLATELET MORPHOLOGY COMMENT FEW LARGE; RBC MORPHOLOGY COMMENT NORMAL
[2020-03-21] MEDS: POLYETHYLENE GLYCOL 3350 17 GM PACK PO SCH (09:00)
[2020-03-21] MEDS: [UNRECOGNIZED DRUG - OTHER] INH SCH (09:00)
[2020-03-21] MEDS: CLOPIDOGREL BISULFATE 75 MG TAB PO SCH (09:19)
[2020-03-21] MEDS: DOCUSATE SODIUM 100 MG CAP PO SCH ×2 (09:19→17:45)
[2020-03-21] MEDS: NICOTINE 14 MG/EA PATCH TOP SCH (09:19)
[2020-03-21] MEDS: PANTOPRAZOLE 40 MG 10ML VIAL IV SCH ×2 (09:19→17:45)
[2020-03-21] MEDS: ASPIRIN 81 MG CHEW TAB PO SCH (09:19)
[2020-03-21] MEDS: NYSTATIN/TRIAMCINOLONE 15 GM CR TOP SCH ×2 (09:20→17:45)
[2020-03-21] MEDS: GUAIFENESIN 600MG/DEXTROMETHORPHAN 30MG TABSR PO PRN (21:49)
[2020-03-22] VITALS: BP 117/75
[2020-03-22] MEDS: MORPHINE SULFATE INJ 4 MG/ML INJ 1ML IV PRN ×2 (03:30→07:39)
[2020-03-22 04:00] VITALS: BP 104/79
[2020-03-22 06:38] LABS: BASOPHILS # (AUTO) 0.2 (0.0-0.1); BASOPHILS % 1.2 % (0.0-1.0); EOSINOPHILS # (AUTO) 1.1 (0.0-0.4); EOSINOPHILS % 8.6 % (0.0-6.0); HEMATOCRIT 31.1 % (38.2-49.6); LYMPHOCYTES # (AUTO) 2.6 (1.0-3.2); LYMPHOCYTES % 20.2 % (18.0-39.1); MEAN CORPUSCULAR HEMOGLOBIN 28.9 pg (28-32); MEAN CORPUSCULAR HGB CONC 32.2 g/dL (31-35); MEAN CORPUSCULAR VOLUME 89.9 fL (81-99); NEUTROPHILS # (AUTO) 7.7 (2.1-6.9); PLATELET COUNT 1072 x10e3/uL (140-360); RED BLOOD COUNT 3.46 x10e6/uL (4.3-5.7); RED CELL DISTRIBUTION WIDTH 14.7 % (11.7-14.4)
[2020-03-22 07:04] LABS: ANION GAP 12.8 mmol/L (8-16); BLOOD UREA NITROGEN 19 mg/dL (7-26); BUN/CREATININE RATIO 21 (6-25); CALCIUM 8.5 mg/dL (8.4-10.2); CARBON DIOXIDE 23 mmol/L (22-29); CHLORIDE 105 mmol/L (98-107); CREATININE, SERUM 0.89 mg/dL (0.72-1.25); EST GLOMERULAR FILTRATION RATE > 60 ML/MIN (60-); GLUCOSE 96 mg/dL (74-118); POTASSIUM 3.8 mmol/L (3.5-5.1); SODIUM 137 mmol/L (136-145)
[2020-03-22 07:57] VITALS: BP 102/73
[2020-03-22] MEDS: [UNRECOGNIZED DRUG - OTHER] INH SCH (09:00)
[2020-03-22] MEDS: PANTOPRAZOLE 40 MG 10ML VIAL IV SCH (09:00)
[2020-03-22] MEDS: POLYETHYLENE GLYCOL 3350 17 GM PACK PO SCH (09:00)
[2020-03-22 09:02] VITALS: BP 102/73
[2020-03-22] MEDS: CLOPIDOGREL BISULFATE 75 MG TAB PO SCH (09:28)
[2020-03-22] MEDS: DOCUSATE SODIUM 100 MG CAP PO SCH (09:28)
[2020-03-22] MEDS: ASPIRIN 81 MG CHEW TAB PO SCH (09:28)
[2020-03-22] MEDS: NYSTATIN/TRIAMCINOLONE 15 GM CR TOP SCH (09:28)
[2020-03-22] MEDS: NICOTINE 14 MG/EA PATCH TOP SCH (09:28)
[2020-03-22 20:00] VITALS: BP 104/76
== END 2020-03-22 10:37 | disposition home or self-care (01) | DRG 330 ==
LOC: MED/SURG3 15:48
PROVIDERS: ADMIT Internal Medicine; ATTEND Internal Medicine
PROC: 0WUF0JZ Supplement Abdominal Wall with Synthetic Substitute, Open Approach (ICD-10-PCS; principal; 2020-03-03)
PROC: 0DT80ZZ Resection of Small Intestine, Open Approach (ICD-10-PCS; 2020-03-03)
PROC: 0WP Anatomical Regions, General, Removal (ICD-10-PCS; 2020-03-03)
PROC: 02HV33Z Insertion of Infusion Device into Superior Vena Cava, Percutaneous Approach (ICD-10-PCS; 2020-03-03)
DX: K63.2 Fistula of intestine (principal); T86.821 Skin graft (allograft) (autograft) failure; E44.0 Moderate protein-calorie malnutrition; E87.1 Hypo-osmolality and hyponatremia; Z68.29 Body mass index [BMI] 29.0-29.9, adult; I10 Essential (primary) hypertension; E83.42 Hypomagnesemia; F45.21 Hypochondriasis; J44.9 Chronic obstructive pulmonary disease, unspecified; M96.1 Postlaminectomy syndrome, not elsewhere classified; G89.29 Other chronic pain; Z20.828 Contact with and (suspected) exposure to other viral communicable diseases; F17.210 Nicotine dependence, cigarettes, uncomplicated; E83.51 Hypocalcemia; K59.00 Constipation, unspecified; M17.11 Unilateral primary osteoarthritis, right knee; D50.9 Iron deficiency anemia, unspecified; B18.2 Chronic viral hepatitis C; I73.9 Peripheral vascular disease, unspecified
CPT/HCPCS: 36415; 36569; 71045; 80048; 80053; 82948; 83605; 83735; 84100; 85025; 85610; 85730; 88307; 96361; 96366; 96376; 97139; 99251; J0694; J1100; J1170; J1580; J1885; J2250; J2270; J2405; J2710; J3010; J3475; J3480; J7030; J7042; Q0162; U0002

== ENCOUNTER → 2020-07-30 | Outpatient (CLI) | payer MEDICARE ==
[~2020-07-30] MED LIST changes: +DIATRIZOATE MEGL/DIATRIZOA SOD 30 ML BTL PO ONE; +IOPAMIDOL 370 MG/ML 200 ML INFUS..BTL INJ ONE; +SODIUM CHLORIDE 0.9% 50ML 50 ML ONE
[2020-07-30 17:57] LABS: CREATININE, SERUM 1.26 mg/dL (0.72-1.25)
== END ==
LOC: CT 17:00
PROVIDERS: ATTEND Surgery
DX: K63.2 Fistula of intestine (principal); T14.8XXA Other injury of unspecified body region, initial encounter
CPT/HCPCS: 36415; 74177; 82565; 84520; Q9967

== ENCOUNTER 2020-08-10 11:28 | Inpatient (IN) | payer MEDICARE ==
[2020-08-09 08:36] LABS: BASOPHILS # (AUTO) 0.1 (0.0-0.1); EOSINOPHILS # (AUTO) 0.7 (0.0-0.4); EOSINOPHILS % 5.8 % (0.0-6.0); HEMATOCRIT 37.8 % (38.2-49.6); HEMOGLOBIN 11.9 g/dL (14.0-18.0); LYMPHOCYTES # (AUTO) 2.8 (1.0-3.2); LYMPHOCYTES % 22.6 % (18.0-39.1); MEAN CORPUSCULAR HGB CONC 31.5 g/dL (31-35); MEAN CORPUSCULAR VOLUME 85.9 fL (81-99); MONOCYTES # (AUTO) 1.1 (0.2-0.8); MONOCYTES % 8.9 % (4.4-11.3); NEUTROPHILS # (AUTO) 7.5 (2.1-6.9); NEUTROPHILS % 61.3 % (38.7-80.0); PLATELET COUNT 703 x10e3/uL (140-360); RED CELL DISTRIBUTION WIDTH 18.2 % (11.7-14.4)
[2020-08-09 08:58] LABS: ALBUMIN 2.8 g/dL (3.5-5.0); ALBUMIN/GLOBULIN RATIO 0.5 (0.8-2.0); ANION GAP 10.9 mmol/L (8-16); CREATININE, SERUM 1.42 mg/dL (0.72-1.25); POTASSIUM 3.9 mmol/L (3.5-5.1)
[~2020-08-10] VITALS: Ht 175.3 cm; Wt 83.9 kg
[~2020-08-10 11:28] MED LIST changes: -DIATRIZOATE MEGL/DIATRIZOA SOD 30 ML BTL PO ONE; +HYDROCODON-ACE1 EAC9 PO; -IOPAMIDOL 370 MG/ML 200 ML INFUS..BTL INJ ONE; -SODIUM CHLORIDE 0.9% 50ML 50 ML ONE
[2020-08-10] MEDS ORDERED: CEFOXITIN 1GM/0.9% NS 50ML 100 ML IV ONE (11:49)
[2020-08-10] MEDS ORDERED: LIDOCAINE HCL 2% LOCAL INJ 5 ML SDV VIAL INJ ONE (12:01)
[2020-08-10] MEDS ORDERED: ROCURONIUM BROMIDE 10 MG/ML 5ML VIAL IV ONE (12:01)
[2020-08-10] MEDS ORDERED: ONDANSETRON HCL INJ 2MG/ML 2ML 2 MG/ML VIAL ONE (12:01)
[2020-08-10] MEDS ORDERED: PROPOFOL IV EMULSION 10 MG/ML 20 ML VIAL ONE (12:01)
[2020-08-10] MEDS ORDERED: NEOSTIGMINE 1 MG/ML 10ML VIAL ONE (12:01)
[2020-08-10] MEDS ORDERED: POVIDONE IODINE 0.05% 0.05 % ML PO ONE (12:01)
[2020-08-10] MEDS ORDERED: DEXAMETHASONE SOD PHOS INJ 4 MG/ML VIAL ONE (12:01)
[2020-08-10] MEDS ORDERED: SEVOFLURANE INHAL SOLN 250 ML PEN BTL ONE (12:01)
[2020-08-10] MEDS ORDERED: GLYCOPYRROLATE INJ 0.2 MG/ML VIAL ONE (12:01)
[2020-08-10] MEDS ORDERED: MIDAZOLAM HCL 2 MG/2 ML VIAL ONE (12:12)
[2020-08-10] MEDS ORDERED: FENTANYL CITRATE/PF 100MCG/2 ML INJ ONE (12:12)
[2020-08-10] MEDS ORDERED: HYDROMORPHONE 2MG/ML 2 MG/ML ML ONE (16:08)
[2020-08-10] MEDS ORDERED: ACETAMINOPHEN 1000 MG/100 ML 100 ML IV ONE (16:08)
[2020-08-10] MEDS: SODIUM CHLORIDE 0.9% 250ML IRRIG IR SCH ×2 (17:00→21:00)
[2020-08-10] MEDS ORDERED: NALOXONE HCL INJ 0.4 MG/ML AMP IV PRN (17:00)
[2020-08-10] MEDS ORDERED: KETOROLAC TROMETHAMINE 30 MG/ML VIAL IV PRN (17:00)
[2020-08-10] MEDS ORDERED: ONDANSETRON HCL INJ 2MG/ML 2ML 2 MG/ML VIAL IV PRN (17:00)
[2020-08-10] MEDS ORDERED: ACETAMINOPHEN 1000 MG/100 ML IV PRN (17:00)
[2020-08-10] MEDS: HYDROMORPHONE 0.2MG/ML-SOD CHL 30ML PCA SYRINGE IV PRN (17:15)
[2020-08-10] MEDS ORDERED: HYDROMORPHONE 1MG/1ML INJ ONE (17:41)
[2020-08-10] MEDS ORDERED: DIPHENHYDRAMINE HCL INJ 50 MG/ML VIAL ONE (17:55)
[2020-08-10] MEDS ORDERED: HYDRALAZINE HCL 20 MG/ML VIAL IV PRN (18:30)
[2020-08-10 20:00] VITALS: BP 136/86
[2020-08-10] MEDS: DEXTROSE 5%/LACTATED RINGERS 1,000 ML IV SCH (20:00)
[2020-08-10] MEDS: PIPERACILLIN/TAZOBAC 3.375 GM in SODIUM CHLORIDE 0.9% 50ML 50 ML IV SCH (20:10)
[2020-08-11] VITALS (8 sets, daily range): BP systolic 100–148; BP diastolic 62–82
[2020-08-11] MEDS: PIPERACILLIN/TAZOBAC 3.375 GM in SODIUM CHLORIDE 0.9% 50ML 50 ML IV SCH ×4 (01:46→17:29)
[2020-08-11] MEDS: SODIUM CHLORIDE 0.9% 250ML IRRIG IR SCH ×6 (01:46→20:57)
[2020-08-11] MEDS: HYDROMORPHONE 0.2MG/ML-SOD CHL 30ML PCA SYRINGE IV PRN ×2 (06:27→16:46)
[2020-08-11 06:31] LABS: BASOPHILS # (AUTO) 0.1 (0.0-0.1); BASOPHILS % 0.5 % (0.0-1.0); EOSINOPHILS % 0.4 % (0.0-6.0); HEMATOCRIT 37.4 % (38.2-49.6); HEMOGLOBIN 11.7 g/dL (14.0-18.0); LYMPHOCYTES % 19.3 % (18.0-39.1); MEAN CORPUSCULAR HEMOGLOBIN 26.7 pg (28-32); MEAN CORPUSCULAR HGB CONC 31.3 g/dL (31-35); MEAN CORPUSCULAR VOLUME 85.2 fL (81-99); MONOCYTES % 9.1 % (4.4-11.3); NEUTROPHILS # (AUTO) 7.4 (2.1-6.9); PLATELET COUNT 652 x10e3/uL (140-360); RED BLOOD COUNT 4.39 x10e6/uL (4.3-5.7)
[2020-08-11] MEDS: DEXTROSE 5%/LACTATED RINGERS 1,000 ML IV SCH ×4 (06:36→22:30)
[2020-08-11 06:47] LABS: ANION GAP 11.5 mmol/L (8-16); CALCIUM 8.5 mg/dL (8.4-10.2); CREATININE, SERUM 1.31 mg/dL (0.72-1.25); POTASSIUM 4.5 mmol/L (3.5-5.1)
[2020-08-11] MEDS ORDERED: ALBUTEROL/IPRATROPIUM 3 ML NEB NEB PRN (07:00)
[2020-08-11] MEDS ORDERED: ALBUTEROL SULFATE HFA 8GM INHALATION AEROSOL INH PRN (07:00)
[2020-08-11] MEDS ORDERED: ALBUTEROL SULFATE HFA 8GM INHALATION AEROSOL INH ONE (08:32)
[2020-08-11] MEDS ORDERED: FAMOTIDINE 20 MG/2 ML VIAL IV SCH (09:00)
[2020-08-11] MEDS: FAMOTIDINE 20 MG/2 ML VIAL IV SCH ×2 (09:00→20:57)
[2020-08-11] MEDS: NICOTINE 21 MG/EA PATCH TOP PRN (20:58)
[2020-08-12] VITALS (8 sets, daily range): BP systolic 99–126; BP diastolic 66–84
[2020-08-12] MEDS: SODIUM CHLORIDE 0.9% 250ML IRRIG IR SCH ×7 (01:00→23:48)
[2020-08-12] MEDS: HYDROMORPHONE 0.2MG/ML-SOD CHL 30ML PCA SYRINGE IV PRN ×2 (01:26→20:07)
[2020-08-12] MEDS: PIPERACILLIN/TAZOBAC 3.375 GM in SODIUM CHLORIDE 0.9% 50ML 50 ML IV SCH ×6 (05:08→23:45)
[2020-08-12 07:22] LABS: BASOPHILS # (AUTO) 0.1 (0.0-0.1); BASOPHILS % 1.4 % (0.0-1.0); EOSINOPHILS # (AUTO) 0.8 (0.0-0.4); EOSINOPHILS % 7.5 % (0.0-6.0); HEMATOCRIT 32.6 % (38.2-49.6); HEMOGLOBIN 10.2 g/dL (14.0-18.0); LYMPHOCYTES # (AUTO) 2.2 (1.0-3.2); LYMPHOCYTES % 21.2 % (18.0-39.1); MEAN CORPUSCULAR HEMOGLOBIN 27.4 pg (28-32); MEAN CORPUSCULAR HGB CONC 31.3 g/dL (31-35); MEAN CORPUSCULAR VOLUME 87.6 fL (81-99); MONOCYTES # (AUTO) 1.1 (0.2-0.8); MONOCYTES % 11.1 % (4.4-11.3); NEUTROPHILS % 58.4 % (38.7-80.0); PLATELET COUNT 569 x10e3/uL (140-360); RED BLOOD COUNT 3.72 x10e6/uL (4.3-5.7); RED CELL DISTRIBUTION WIDTH 18.3 % (11.7-14.4)
[2020-08-12 07:41] LABS: CALCIUM 8.1 mg/dL (8.4-10.2); CREATININE, SERUM 1.21 mg/dL (0.72-1.25)
[2020-08-12] MEDS: FAMOTIDINE 20 MG/2 ML VIAL IV SCH ×2 (09:00→21:35)
[2020-08-12] MEDS: DEXTROSE 5%/LACTATED RINGERS 1,000 ML IV SCH ×3 (10:30→21:51)
[2020-08-12] MEDS ORDERED: GUAIFENESIN 600MG/DEXTROMETHORPHAN 30MG TABSR PO PRN (10:45)
[2020-08-12] MEDS: NICOTINE 21 MG/EA PATCH TOP PRN (21:35)
[2020-08-13] VITALS (8 sets, daily range): BP systolic 105–140; BP diastolic 62–88
[2020-08-13] MEDS: GUAIFENESIN 600MG/DEXTROMETHORPHAN 30MG TABSR PO PRN ×2 (01:26→20:56)
[2020-08-13] MEDS: SODIUM CHLORIDE 0.9% 250ML IRRIG IR SCH ×2 (05:00→08:04)
[2020-08-13] MEDS: DEXTROSE 5%/LACTATED RINGERS 1,000 ML IV SCH ×3 (05:16→20:57)
[2020-08-13] MEDS: PIPERACILLIN/TAZOBAC 3.375 GM in SODIUM CHLORIDE 0.9% 50ML 50 ML IV SCH ×3 (05:17→17:07)
[2020-08-13 05:42] LABS: BASOPHILS # (AUTO) 0.1 (0.0-0.1); BASOPHILS % 1.1 % (0.0-1.0); EOSINOPHILS # (AUTO) 0.5 (0.0-0.4); EOSINOPHILS % 4.9 % (0.0-6.0); HEMATOCRIT 31.2 % (38.2-49.6); HEMOGLOBIN 9.8 g/dL (14.0-18.0); LYMPHOCYTES % 18.8 % (18.0-39.1); MEAN CORPUSCULAR HEMOGLOBIN 26.8 pg (28-32); MEAN CORPUSCULAR HGB CONC 31.4 g/dL (31-35); MEAN CORPUSCULAR VOLUME 85.5 fL (81-99); MONOCYTES % 9.3 % (4.4-11.3); NEUTROPHILS % 65.5 % (38.7-80.0); PLATELET COUNT 572 x10e3/uL (140-360); RED BLOOD COUNT 3.65 x10e6/uL (4.3-5.7); RED CELL DISTRIBUTION WIDTH 17.9 % (11.7-14.4)
[2020-08-13 06:11] LABS: ANION GAP 11.5 mmol/L (8-16); BLOOD UREA NITROGEN 11 mg/dL (7-26); BUN/CREATININE RATIO 10 (6-25); CALCIUM 8.3 mg/dL (8.4-10.2); CARBON DIOXIDE 24 mmol/L (22-29); CHLORIDE 102 mmol/L (98-107); CREATININE, SERUM 1.13 mg/dL (0.72-1.25); EST GLOMERULAR FILTRATION RATE > 60 ML/MIN (60-); GLUCOSE 122 mg/dL (74-118); POTASSIUM 3.5 mmol/L (3.5-5.1); SODIUM 134 mmol/L (136-145)
[2020-08-13] MEDS: FAMOTIDINE 20 MG/2 ML VIAL IV SCH ×2 (08:04→20:56)
[2020-08-13] MEDS: HYDROMORPHONE 0.2MG/ML-SOD CHL 30ML PCA SYRINGE IV PRN (12:50)
[2020-08-14 01:29] VITALS: BP 127/82
[2020-08-14 05:19] VITALS: BP 125/77
[2020-08-14 05:21] LABS: HEMATOCRIT 33.2 % (38.2-49.6); HEMOGLOBIN 10.8 g/dL (14.0-18.0); MEAN CORPUSCULAR HEMOGLOBIN 27.1 pg (28-32); MEAN CORPUSCULAR HGB CONC 32.5 g/dL (31-35); MEAN CORPUSCULAR VOLUME 83.4 fL (81-99); PLATELET COUNT 558 x10e3/uL (140-360); RED BLOOD COUNT 3.98 x10e6/uL (4.3-5.7); RED CELL DISTRIBUTION WIDTH 17.3 % (11.7-14.4)
[2020-08-14 05:38] LABS: ANION GAP 14.7 mmol/L (8-16); BLOOD UREA NITROGEN 7 mg/dL (7-26); BUN/CREATININE RATIO 7 (6-25); CALCIUM 8.5 mg/dL (8.4-10.2); CARBON DIOXIDE 23 mmol/L (22-29); CHLORIDE 100 mmol/L (98-107); CREATININE, SERUM 0.97 mg/dL (0.72-1.25); EST GLOMERULAR FILTRATION RATE > 60 ML/MIN (60-); GLUCOSE 108 mg/dL (74-118); POTASSIUM 3.7 mmol/L (3.5-5.1); SODIUM 134 mmol/L (136-145)
[2020-08-14] MEDS: PIPERACILLIN/TAZOBAC 3.375 GM in SODIUM CHLORIDE 0.9% 50ML 50 ML IV SCH ×6 (06:00→23:45)
[2020-08-14 08:08] VITALS: BP 124/85
[2020-08-14] MEDS: FAMOTIDINE 20 MG/2 ML VIAL IV SCH ×2 (08:37→21:02)
[2020-08-14 08:53] LABS: EOSINOPHILS % (MANUAL) 8 % (0-7); LYMPHOCYTES % (MANUAL) 15 % (19-48); MONOCYTES % (MANUAL) 9 % (3.4-9.0); NEUTROPHILS % (MANUAL) 68 % (40-74)
[2020-08-14 08:54] LABS: ANISOCYTOSIS SLIGHT; PLATELET ESTIMATE MODERATELY INCREASED; TARGET CELLS FEW
[2020-08-14 08:55] LABS: TEAR DROP CELLS FEW
[2020-08-14 08:56] LABS: PLATELET MORPHOLOGY COMMENT FEW GIANT; RBC MORPHOLOGY COMMENT ABNORMAL
[2020-08-14 09:12] VITALS: BP 124/85
[2020-08-14] MEDS: DEXTROSE 5%/LACTATED RINGERS 1,000 ML IV SCH (12:26)
[2020-08-14] MEDS ORDERED: HYDROMORPHONE 1MG/1ML INJ IV PRN (12:30)
[2020-08-14 16:30] VITALS: BP 120/82
[2020-08-14] MEDS: GUAIFENESIN 600MG/DEXTROMETHORPHAN 30MG TABSR PO PRN (16:30)
[2020-08-14] MEDS: HYDROCODONE/APAP 10MG-325MG TAB PO PRN ×2 (16:30→21:02)
[2020-08-14 20:04] VITALS: BP 110/70
[2020-08-15] VITALS (7 sets, daily range): BP systolic 116–133; BP diastolic 68–88
[2020-08-15] MEDS: DEXTROSE 5%/LACTATED RINGERS 1,000 ML IV SCH ×2 (01:01→04:42)
[2020-08-15] MEDS: GUAIFENESIN 600MG/DEXTROMETHORPHAN 30MG TABSR PO PRN (04:42)
[2020-08-15] MEDS: HYDROCODONE/APAP 10MG-325MG TAB PO PRN ×5 (04:42→22:46)
[2020-08-15 05:13] LABS: BASOPHILS # (AUTO) 0.1 (0.0-0.1); BASOPHILS % 0.9 % (0.0-1.0); EOSINOPHILS # (AUTO) 0.8 (0.0-0.4); EOSINOPHILS % 10.6 % (0.0-6.0); HEMATOCRIT 34.4 % (38.2-49.6); HEMOGLOBIN 10.8 g/dL (14.0-18.0); LYMPHOCYTES # (AUTO) 1.8 (1.0-3.2); MEAN CORPUSCULAR HEMOGLOBIN 27.1 pg (28-32); MEAN CORPUSCULAR HGB CONC 31.4 g/dL (31-35); MEAN CORPUSCULAR VOLUME 86.2 fL (81-99); MONOCYTES # (AUTO) 0.9 (0.2-0.8); MONOCYTES % 11.6 % (4.4-11.3); NEUTROPHILS # (AUTO) 3.9 (2.1-6.9); NEUTROPHILS % 52.6 % (38.7-80.0); PLATELET COUNT 603 x10e3/uL (140-360); RED BLOOD COUNT 3.99 x10e6/uL (4.3-5.7)
[2020-08-15] MEDS: PIPERACILLIN/TAZOBAC 3.375 GM in SODIUM CHLORIDE 0.9% 50ML 50 ML IV SCH ×2 (05:17→13:13)
[2020-08-15] MEDS: NICOTINE 21 MG/EA PATCH TOP PRN (06:10)
[2020-08-15] MEDS ORDERED: SODIUM CHLORIDE FLUSH 10 ML SYR INJ PRN (06:15)
[2020-08-15 07:04] LABS: ANION GAP 10.8 mmol/L (8-16); BLOOD UREA NITROGEN 8 mg/dL (7-26); BUN/CREATININE RATIO 8 (6-25); CALCIUM 8.6 mg/dL (8.4-10.2); CARBON DIOXIDE 25 mmol/L (22-29); CHLORIDE 105 mmol/L (98-107); CREATININE, SERUM 1.06 mg/dL (0.72-1.25); EST GLOMERULAR FILTRATION RATE > 60 ML/MIN (60-); GLUCOSE 119 mg/dL (74-118); POTASSIUM 3.8 mmol/L (3.5-5.1); SODIUM 137 mmol/L (136-145)
[2020-08-15] MEDS: FAMOTIDINE 20 MG/2 ML VIAL IV SCH (09:54)
[2020-08-15] MEDS ORDERED: LEVOFLOXACIN 500 MG TAB PO SCH (16:00)
[2020-08-15] MEDS: FAMOTIDINE 20 MG TAB PO SCH (21:30)
[2020-08-15] MEDS: DIAZEPAM 5 MG TAB PO PRN (23:41)
[2020-08-16] VITALS: BP 133/75
[2020-08-16] MEDS: HYDROCODONE/APAP 10MG-325MG TAB PO PRN ×3 (02:50→13:30)
[2020-08-16 04:00] VITALS: BP 124/90
[2020-08-16] MEDS: NICOTINE 21 MG/EA PATCH TOP PRN (06:22)
[2020-08-16 07:16] LABS: BASOPHILS # (AUTO) 0.1 (0.0-0.1); BASOPHILS % 0.8 % (0.0-1.0); EOSINOPHILS # (AUTO) 0.7 (0.0-0.4); EOSINOPHILS % 8.4 % (0.0-6.0); HEMATOCRIT 31.4 % (38.2-49.6); HEMOGLOBIN 9.9 g/dL (14.0-18.0); LYMPHOCYTES # (AUTO) 2.1 (1.0-3.2); LYMPHOCYTES % 25.1 % (18.0-39.1); MEAN CORPUSCULAR HEMOGLOBIN 26.7 pg (28-32); MEAN CORPUSCULAR HGB CONC 31.5 g/dL (31-35); MEAN CORPUSCULAR VOLUME 84.6 fL (81-99); MONOCYTES # (AUTO) 0.9 (0.2-0.8); MONOCYTES % 10.8 % (4.4-11.3); NEUTROPHILS # (AUTO) 4.7 (2.1-6.9); NEUTROPHILS % 54.5 % (38.7-80.0); PLATELET COUNT 689 x10e3/uL (140-360); RED BLOOD COUNT 3.71 x10e6/uL (4.3-5.7); RED CELL DISTRIBUTION WIDTH 17.8 % (11.7-14.4)
[2020-08-16 07:35] VITALS: BP 142/90
[2020-08-16 07:43] LABS: BLOOD UREA NITROGEN 10 mg/dL (7-26); BUN/CREATININE RATIO 12 (6-25); CALCIUM 8.5 mg/dL (8.4-10.2); CARBON DIOXIDE 25 mmol/L (22-29); CHLORIDE 103 mmol/L (98-107); CREATININE, SERUM 0.86 mg/dL (0.72-1.25); EST GLOMERULAR FILTRATION RATE > 60 ML/MIN (60-); GLUCOSE 97 mg/dL (74-118); MAGNESIUM 1.8 MG/DL (1.3-2.1); PHOSPHORUS 3.4 MG/DL (2.3-4.7); SODIUM 137 mmol/L (136-145)
[2020-08-16] MEDS: FAMOTIDINE 20 MG TAB PO SCH (08:39)
[2020-08-16 09:58] VITALS: BP 142/90
[2020-08-16] MEDS: DIAZEPAM 5 MG TAB PO PRN (10:43)
[2020-08-16 11:41] VITALS: BP 133/87
[2020-08-16] MEDS ORDERED: LEVOFLOXACIN250 MG PO (12:40)
[2020-08-16] MEDS ORDERED: HYDROCODON-ACE1 EAC9 PO (12:40)
== END 2020-08-16 13:54 | disposition home or self-care (01) | DRG 330 ==
LOC: OR 11:28 → MED/SURG 18:01 → OR 18:44 → MED/SURG 18:45
PROVIDERS: ADMIT Surgery; ATTEND Surgery
PROC: 0DN80ZZ Release Small Intestine, Open Approach (ICD-10-PCS; 2020-08-10)
PROC: 0DT80ZZ Resection of Small Intestine, Open Approach (ICD-10-PCS; principal; 2020-08-10 13:30)
PROC: 0WUF0JZ Supplement Abdominal Wall with Synthetic Substitute, Open Approach (ICD-10-PCS; 2020-08-10 13:30)
PROC: 0DNB0ZZ Release Ileum, Open Approach (ICD-10-PCS; 2020-08-10 13:30)
DX: K63.2 Fistula of intestine (principal); K43.0 Incisional hernia with obstruction, without gangrene; N17.9 Acute kidney failure, unspecified; J44.9 Chronic obstructive pulmonary disease, unspecified; F17.200 Nicotine dependence, unspecified, uncomplicated; G89.29 Other chronic pain; B96.5 Pseudomonas (aeruginosa) (mallei) (pseudomallei) as the cause of diseases classified elsewhere; K66.0 Peritoneal adhesions (postprocedural) (postinfection); I73.9 Peripheral vascular disease, unspecified; Z20.822 Contact with and (suspected) exposure to COVID-19
CPT/HCPCS: 36415; 71046; 80048; 80053; 83735; 84100; 85007; 85025; 85027; 86850; 86900; 87071; 87075; 87186; 87205; 88307; 93005; C1781; J1100; J1170; J1200; J2001; J2250; J2405; J2543; J2710; J3010; U0002

== ENCOUNTER → 2021-09-12 | Day surgery (SDC) | payer MEDICARE ==
[~2021-09-12] MED LIST changes: +BUPIVACAINE HC 0.75% PF 10ML VIAL INJ ONE; +DEXAMETHASONE SOD PHOS INJ 4 MG/ML SDV ONE; +FENTANYL CITRATE/PF 100MCG/2 ML INJ ONE; +LEVOFLOXACIN250 MG PO; +LIDOCAINE HCL 2% LOCAL INJ 5 ML SDV VIAL INJ ONE; +MIDAZOLAM HCL 2 MG/2 ML VIAL ONE; +Morphine 4mg INJECTION 4 MG/ML INJ ONE; +ONDANSETRON HCL INJ 2MG/ML 2ML 2 MG/ML VIAL ONE; +POVIDONE IODINE 0.05% 0.05 % ML PO ONE; +PROPOFOL IV EMULSION 10 MG/ML 20 ML VIAL ONE; +SEVOFLURANE INHAL SOLN 250 ML PEN BTL ONE; +SODIUM CHLORIDE 0.9% 250ML 250 ML ONE; +SUGAMMADEX SODIUM 200 MG/2 ML VIAL IV ONE; +TRELEGY ELLIPT1 EACH INH; +Vancomycin IV 1 GM VIAL ONE
[2021-09-12 08:24] LABS: BASOPHILS # (AUTO) 0.1 (0.0-0.1); BASOPHILS % 1.4 % (0.0-1.0); EOSINOPHILS # (AUTO) 0.6 (0.0-0.4); EOSINOPHILS % 6.9 % (0.0-6.0); HEMATOCRIT 39.9 % (38.2-49.6); HEMOGLOBIN 12.7 g/dL (14.0-18.0); LYMPHOCYTES # (AUTO) 1.7 (1.0-3.2); LYMPHOCYTES % 19.1 % (18.0-39.1); MEAN CORPUSCULAR HGB CONC 31.8 g/dL (31-35); MEAN CORPUSCULAR VOLUME 97.3 fL (81-99); MONOCYTES # (AUTO) 0.9 (0.2-0.8); MONOCYTES % 9.8 % (4.4-11.3); NEUTROPHILS # (AUTO) 5.6 (2.1-6.9); NEUTROPHILS % 62.5 % (38.7-80.0); PLATELET COUNT 525 x10e3/uL (140-360); RED CELL DISTRIBUTION WIDTH 16.3 % (11.7-14.4)
[2021-09-12 08:43] LABS: ALBUMIN 3.1 g/dL (3.5-5.0); ALBUMIN/GLOBULIN RATIO 0.6 (0.8-2.0); ANION GAP 15.1 mmol/L (8-16); CALCIUM 8.3 mg/dL (8.4-10.2); CREATININE, SERUM 1.18 mg/dL (0.72-1.25); POTASSIUM 4.1 mmol/L (3.5-5.1)
[2021-09-12 12:50] VITALS: BP 139/79
== END | disposition home or self-care (01) ==
LOC: OR 07:46
PROVIDERS: ATTEND Surgery
DX: S31.109A Unspecified open wound of abdominal wall, unspecified quadrant without penetration into peritoneal cavity, initial encounter (principal); T85.79XA Infection and inflammatory reaction due to other internal prosthetic devices, implants and grafts, initial encounter; I10 Essential (primary) hypertension; J44.9 Chronic obstructive pulmonary disease, unspecified; M19.90 Unspecified osteoarthritis, unspecified site; E66.9 Obesity, unspecified; F17.210 Nicotine dependence, cigarettes, uncomplicated; Y83.8 Other surgical procedures as the cause of abnormal reaction of the patient, or of later complication, without mention of misadventure at the time of the procedure; X58.XXXA Exposure to other specified factors, initial encounter; Z88.2 Allergy status to sulfonamides; Z01.810 Encounter for preprocedural cardiovascular examination; Z01.812 Encounter for preprocedural laboratory examination; Z01.818 Encounter for other preprocedural examination; Z79.02 Long term (current) use of antithrombotics/antiplatelets; Z79.899 Other long term (current) drug therapy; Z68.31 Body mass index [BMI] 31.0-31.9, adult; Z86.73 Personal history of transient ischemic attack (TIA), and cerebral infarction without residual deficits; Z86.19 Personal history of other infectious and parasitic diseases
CPT/HCPCS: 0223U; 22999; 36415; 71046; 80053; 85025; 88304; 93005; J1100; J2001; J2250; J2270; J2405; J2704; J3010; J3370; J7050